=== PATIENT | female | born 1995 | race Hispanic/Latino ===

== ENCOUNTER 2018-10-18 09:41 | Emergency (ER) | payer OTHER, SELFPAY ==
[2018-10-18] MEDS ORDERED: Morphine 4 MG/ML VIAL ONE (10:35)
[2018-10-18 10:50] LABS: #Eosinphils 0.1 thou/uL (0.0-0.7); #Lymphocytes 1.8 thou/uL (1.20-3.40); #Monocytes 0.3 thou/uL (0.11-0.59); #Neutrophils 3.7 thou/uL (1.40-6.50); %Basophils 0.1 % (0.0-1.0); %Eosinophils 1.9 % (0.0-10.0); %Lymphocytes 29.6 % (21.0-51.0); %Monocytes 5.6 % (0.0-10.0); %Neutrophils 62.8 % (42.0-75.0); Mean Corpuscular HGB CONC 33.9 g/dL (32.0-36.0); Mean Corpuscular Hemoglobin 26.4 pg (27.0-31.0); Mean Corpuscular Volume 77.9 fL (78.0-98.0); Mean Platelet Volume 8.2 fL (7.4-10.4); Platelet Count 270 thou/uL (130-400); RBC Distribution Width 12.3 % (11.5-14.5); Red Blood Cell (RBC) Count 4.53 mill/uL (4.20-5.40); White Blood Cell (WBC) Count 5.9 thou/uL (4.8-10.8)
[2018-10-18 10:58] LABS: BHCG - Serum Negative (NEGATIVE); Pregs Control Background? CLEAR/WHITE (CLR/WHITE); Pregs Control Bar Appear? YES (CONTROL BAR)
[2018-10-18 11:11] LABS: ALT (SGPT) 10 U/L (8-55); AST (SGOT) 14 U/L (5-34); Albumin 4.2 g/dL (3.5-5.0); Alkaline Phosphatase 71 U/L (40-150); Anion Gap 11 mmol/L (10-20); BUN (Urea Nitrogen) 8 mg/dL (7.0-18.7); Bilirubin, Total 0.5 mg/dL (0.2-1.2); Calc. Creatinine Clearance 0 mL/min (70-130); Calcium 9.3 mg/dL (7.8-10.44); Carbon Dioxide 26 mmol/L (22-29); Chloride 104 mmol/L (98-107); Estimated GFR-MDRD 79; Globulin 3.2 g/dL (2.4-3.5); Glucose 86 mg/dL (70-105); Lipase 56 U/L (8-78); Potassium 3.6 mmol/L (3.5-5.1); Protein, Total 7.4 g/dL (6.0-8.3); Sodium 137 mmol/L (136-145)
[2018-10-18 11:42] LABS: Bilirubin Negative (Negative); Blood, Urine Negative (Negative); Clarity CLEAR (Clear); Glucose, Urine (Dipstick) Negative (Negative); Leukocyte Negative (Negative); Nitrite Negative (Negative); Protein, Urine (Dipstick) Negative (Neg-Trace); Specific Gravity, Urine 1.006 (1.002-1.036); Urobilinogen 0.2 mg/dL (0.2-1.0)
--- NOTE | 2018-10-18 12:03 | ULT ---
RIGHT UPPER QUADRANT ULTRASOUND: History: Right upper quadrant pain. FINDINGS: Images of the gallbladder shows no evidence of gallstones. The gallbladder wall thickness is normal. The common duct is normal caliber. Technologist does describe a positive Philippe's sign with scanning of the gallbladder. The liver and right kidney as imaged appear unremarkable. The pancreas is mostly obscured. IMPRESSION: Unremarkable gallbladder ultrasound. Technologist does describe a positive Philippe's sign with imaging . POS: OFF
== END 2018-10-18 12:48 | disposition home or self-care (01) ==
LOC: ERS 09:41
DX: M65.4 Radial styloid tenosynovitis [de Quervain] (principal); F41.9 Anxiety disorder, unspecified; F32.9 Major depressive disorder, single episode, unspecified; F43.10 Post-traumatic stress disorder, unspecified; K58.0 Irritable bowel syndrome with diarrhea
CPT/HCPCS: 76705; 80053; 81003; 83690; 84703; 85025; 96361; 96374; J2270

== ENCOUNTER 2018-10-30 17:48 | Emergency (ER) | payer OTHER ==
[2018-10-30 18:38] LABS: #Eosinphils 0.1 thou/uL (0.0-0.7); #Lymphocytes 2.4 thou/uL (1.20-3.40); #Monocytes 0.5 thou/uL (0.11-0.59); #Neutrophils 4.3 thou/uL (1.40-6.50); %Basophils 0.4 % (0.0-1.0); %Eosinophils 1.2 % (0.0-10.0); %Lymphocytes 33.2 % (21.0-51.0); %Monocytes 6.2 % (0.0-10.0); Hemoglobin 13.5 g/dL (12.0-16.0); Mean Corpuscular HGB CONC 34.6 g/dL (32.0-36.0); Mean Platelet Volume 8.6 fL (7.4-10.4); Platelet Count 268 thou/uL (130-400); RBC Distribution Width 12.7 % (11.5-14.5); Red Blood Cell (RBC) Count 4.99 mill/uL (4.20-5.40); White Blood Cell (WBC) Count 7.2 thou/uL (4.8-10.8)
[2018-10-30 19:01] LABS: ALT (SGPT) 10 U/L (8-55); AST (SGOT) 13 U/L (5-34); Albumin 4.9 g/dL (3.5-5.0); Alkaline Phosphatase 58 U/L (40-150); Anion Gap 15 mmol/L (10-20); BUN (Urea Nitrogen) 10 mg/dL (7.0-18.7); Bilirubin, Total 0.8 mg/dL (0.2-1.2); Calc. Creatinine Clearance 0 mL/min (70-130); Calcium 10.2 mg/dL (7.8-10.44); Carbon Dioxide 22 mmol/L (22-29); Chloride 105 mmol/L (98-107); Estimated GFR-MDRD 63; Globulin 3.7 g/dL (2.4-3.5); Glucose 81 mg/dL (70-105); Potassium 3.6 mmol/L (3.5-5.1); Protein, Total 8.6 g/dL (6.0-8.3); Sodium 138 mmol/L (136-145)
[2018-10-30] MEDS ORDERED: Dicyclomine 20 MG TAB ONE (19:14)
[2018-10-30] MEDS ORDERED: Ondansetron PF 4 MG/2 ML Vial ONE (19:21)
== END 2018-10-30 20:27 | disposition home or self-care (01) ==
LOC: ERS 17:48
DX: R10.11 Right upper quadrant pain (principal); R10.813 Right lower quadrant abdominal tenderness; F41.9 Anxiety disorder, unspecified; F32.9 Major depressive disorder, single episode, unspecified; K58.9 Irritable bowel syndrome, unspecified; Z87.891 Personal history of nicotine dependence; Z79.899 Other long term (current) drug therapy
CPT/HCPCS: 80053; 82274; 85025; 96374; J2405

== ENCOUNTER 2018-11-28 12:40 | Emergency (ER) | payer OTHER ==
[2018-11-28 14:03] LABS: #Eosinphils 0.1 thou/uL (0.0-0.7); #Lymphocytes 1.9 thou/uL (1.20-3.40); #Monocytes 0.3 thou/uL (0.11-0.59); #Neutrophils 3.5 thou/uL (1.40-6.50); %Basophils 0.4 % (0.0-1.0); %Eosinophils 2.4 % (0.0-10.0); %Lymphocytes 32.5 % (21.0-51.0); %Monocytes 4.9 % (0.0-10.0); %Neutrophils 59.8 % (42.0-75.0); Hemoglobin 12.5 g/dL (12.0-16.0); Mean Corpuscular HGB CONC 34.5 g/dL (32.0-36.0); Mean Corpuscular Hemoglobin 27.2 pg (27.0-31.0); Mean Corpuscular Volume 78.8 fL (78.0-98.0); Mean Platelet Volume 8.9 fL (7.4-10.4); Platelet Count 247 thou/uL (130-400); RBC Distribution Width 12.9 % (11.5-14.5); White Blood Cell (WBC) Count 5.8 thou/uL (4.8-10.8)
[2018-11-28 14:20] LABS: Bilirubin Negative (Negative); Blood, Urine Negative (Negative); Clarity CLOUDY (Clear); Glucose, Urine (Dipstick) Negative (Negative); Leukocyte Large (Negative); Nitrite Negative (Negative); Protein, Urine (Dipstick) Negative (Neg-Trace)
[2018-11-28 14:21] LABS: Bacteria/HPF 1+ HPF (None Seen); Hyaline Casts/LPF 4-6 HYALINE CAST LPF (0-3 Hyaline); Pathc Cast-AUWi Flag 0.95 (0-2.49); RBC/HPF 0-3 HPF (0-3)
[2018-11-28 14:27] LABS: ALT (SGPT) 11 U/L (8-55); AST (SGOT) 12 U/L (5-34); Albumin 4.5 g/dL (3.5-5.0); Alkaline Phosphatase 61 U/L (40-150); Anion Gap 14 mmol/L (10-20); BUN (Urea Nitrogen) 10 mg/dL (7.0-18.7); Bilirubin, Total 0.7 mg/dL (0.2-1.2); Calc. Creatinine Clearance 0 mL/min (70-130); Calcium 9.3 mg/dL (7.8-10.44); Carbon Dioxide 22 mmol/L (22-29); Chloride 104 mmol/L (98-107); Estimated GFR-MDRD 71; Globulin 3.5 g/dL (2.4-3.5); Glucose 76 mg/dL (70-105); Lipase 52 U/L (8-78); Potassium 3.6 mmol/L (3.5-5.1); Sodium 136 mmol/L (136-145)
[2018-11-28 16:19] LABS: Pregnancy Test - Urine (BHCG) Negative (Negative); Pregu Control Background? CLEAR/WHITE (CLR/WHITE); Pregu Control Bar Appear? YES (CONTROL BAR); Specific Gravity 1.018 (1.002-1.036)
== END 2018-11-28 16:39 | disposition home or self-care (01) ==
LOC: ERS 12:40
DX: K29.70 Gastritis, unspecified, without bleeding (principal); N39.0 Urinary tract infection, site not specified; F41.9 Anxiety disorder, unspecified; F32.9 Major depressive disorder, single episode, unspecified; F43.10 Post-traumatic stress disorder, unspecified; Z79.899 Other long term (current) drug therapy
CPT/HCPCS: 36415; 80053; 81003; 81015; 81025; 83690; 85025; 99284

== ENCOUNTER 2018-11-28 17:49 | Emergency (ER) | payer OTHER ==
[~2018-11-28 17:49] MED LIST: Iopamidol 370 76% 100 ML VIAL ONE
[2018-11-28] MEDS ORDERED: Sucralfate 1 GM TAB ONE (18:13)
[2018-11-28] MEDS ORDERED: Famotidine 20 MG TAB ONE (18:14)
--- NOTE | 2018-11-28 19:33 | CT ---
CT Abdomen Pelvis W Con: 11/28/2018 6:25 PM CLINICAL INFORMATION: Right upper quadrant abdominal pain COMPARISON: 05/23/2016 TECHNIQUE: Multiple contiguous axial images were obtained and a CT of the abdomen and pelvis with IV contrast. C oronal reformats were performed. FINDINGS: Lower Chest: within normal limits. Abdomen: Liver: within normal limits. Bile Ducts: Normal caliber. Gallbladder: No calcified gallstones. Normal caliber wall. Pancreas: within normal limits. Spleen: within normal limits. Adrenals: within normal limits. Kidneys: within normal limits. Pelvis: Reproductive Organs: No pelvic masses. Ureters: within normal limits. Bladder: within normal limits. Peritoneum: No free air, no fluid collection. A trace amount of free fluid in the pelvis is likely ph ysiologic. Bowel: Normal caliber. Nonvisualized appendix may be from prior appendectomy. Mesentery and Retroperitoneum: No enlarged mesenteric or retroperitoneal lymph nodes. Vessels: Normal. Abdominal Wall: within normal limits. Bones: Within normal limits IMPRESSION: No evidence of acute intraabdominal\pelvic abnormality.
== END 2018-11-28 19:48 | disposition home or self-care (01) ==
LOC: SCSER 17:49
DX: R10.11 Right upper quadrant pain (principal); F41.9 Anxiety disorder, unspecified; F32.9 Major depressive disorder, single episode, unspecified; K58.9 Irritable bowel syndrome, unspecified
CPT/HCPCS: 74177; 96372; J0500; Q9967

== ENCOUNTER 2018-12-07 12:26 | Outpatient (CLI) | payer OTHER ==
--- NOTE | 2018-12-07 15:48 | NM ---
EXAM: Nuclear medicine hepatobiliary scan HISTORY: Right upper quadrant abdominal pain TECHNIQUE: A nuclear medicine hepatobiliary scan was performed after administration of 5.5 mCi of maikel hnetium 99m mebrofenin. A gallbladder ejection fraction was performed after administration of boost by mouth. COMPARISON: None FINDINGS: Prompt uptake of the radiopharmaceutical by the liver is seen. No photopenic liver defects are seen. Biliary activity is seen within 5 minutes. Gallbladder activity is seen within 6 minutes. Bowel activity is seen within 8 minutes. A gallbladder ejection fraction was calculated at greater than 80%. IMPRESSION: Normal hepatobiliary scan
== END 2018-12-07 12:27 | disposition home or self-care (01) ==
LOC: NM 12:26
PROVIDERS: ATTEND Internal Medicine
DX: R10.11 Right upper quadrant pain (principal)
CPT/HCPCS: 78227; A9537

== ENCOUNTER 2018-12-07 19:45 | Observation (INO) | payer OTHER ==
[2018-12-07] MEDS ORDERED: Ondansetron PF 4 MG/2 ML Vial ONE (20:43)
[2018-12-07] MEDS ORDERED: Morphine 4 MG/ML VIAL ONE ×2 (20:43→23:43)
[2018-12-07] MEDS ORDERED: diphenhydrAMINE 50 MG/ML VIAL ONE (20:48)
--- NOTE | 2018-12-07 21:25 | ULT ---
RIGHT UPPER QUADRANT ULTRASOUND: HISTORY: Right upper quadrant abdominal pain. FINDINGS: The liver, gallbladder, right kidney, and visualized portions of the pancreas appear normal. The com mon duct measures 4 mm in diameter. No free fluid is seen in the Hoff pouch. IMPRESSION: Normal examination. POS: [facility]
[2018-12-07 21:29] LABS: #Eosinphils 0.1 thou/uL (0.0-0.7); #Lymphocytes 1.9 thou/uL (1.20-3.40); #Monocytes 0.4 thou/uL (0.11-0.59); %Basophils 0.6 % (0.0-1.0); %Monocytes 6.1 % (0.0-10.0); %Neutrophils 62.4 % (42.0-75.0); Hemoglobin 11.3 g/dL (12.0-16.0); Mean Corpuscular HGB CONC 32.9 g/dL (32.0-36.0); Mean Corpuscular Hemoglobin 26.2 pg (27.0-31.0); Mean Corpuscular Volume 79.7 fL (78.0-98.0); Mean Platelet Volume 8.3 fL (7.4-10.4); Platelet Count 231 thou/uL (130-400); RBC Distribution Width 13.3 % (11.5-14.5); Red Blood Cell (RBC) Count 4.32 mill/uL (4.20-5.40); White Blood Cell (WBC) Count 6.5 thou/uL (4.8-10.8)
[2018-12-07 21:55] LABS: ALT (SGPT) 8 U/L (8-55); AST (SGOT) 9 U/L (5-34); Albumin 3.9 g/dL (3.5-5.0); Alkaline Phosphatase 53 U/L (40-150); Anion Gap 12 mmol/L (10-20); BUN (Urea Nitrogen) 8 mg/dL (7.0-18.7); Bilirubin, Total 0.5 mg/dL (0.2-1.2); Calc. Creatinine Clearance 0 mL/min (70-130); Calcium 8.6 mg/dL (7.8-10.44); Carbon Dioxide 23 mmol/L (22-29); Chloride 107 mmol/L (98-107); Estimated GFR-MDRD 84; Globulin 2.8 g/dL (2.4-3.5); Glucose 83 mg/dL (70-105); Lipase 60 U/L (8-78); Potassium 3.4 mmol/L (3.5-5.1); Protein, Total 6.7 g/dL (6.0-8.3); Sodium 139 mmol/L (136-145)
[2018-12-07] MEDS ORDERED: Ketorolac Tromethamine 30 MG/ML VIAL ONE (22:22)
[2018-12-07 23:56] LABS: Acetaminophen Less than 6.0 mcg/mL (10.0-30.0); Alcohol Less than 10 mg/dL (Less than 10); Salicylate Less than 8.0 mg/dL (15.0-30.0)
[2018-12-08 00:31] VITALS: BMI 37.2
[2018-12-08] MEDS ORDERED: Ondansetron PF 4 MG/2 ML Vial IVP PRN (00:40)
[2018-12-08] MEDS ORDERED: Ondansetron ODT 4 MG TAB SL PRN (00:40)
[2018-12-08] MEDS: Morphine 2 MG/ML SYRINGE SLOW IVP PRN ×2 (03:18→07:14)
[2018-12-08] MEDS ORDERED: traMADol HCl 50 MG TAB PO PRN (09:53)
[2018-12-08] MEDS ORDERED: Pantoprazole 40 MG VIAL IVP SCH ×2 (10:15→11:00)
[2018-12-08 10:38] LABS: CK (CPK) 42 U/L (29-168); CRP (Inflammatory) Less than 0.50 mg/dL (= or < 0.5)
[2018-12-08] MEDS ORDERED: Sodium Chloride 0.9% (PF) 10 ML VIAL FS PRN (10:49)
--- NOTE | 2018-12-08 10:56 | RAD ---
Exam: Chest 2 views HISTORY:Short of breath Comparison: None FINDINGS: Lungs: No masses or consolidation. Cardiac silhouette: Normal size Pulmonary vessels: Normal Pleural Spaces: Clear Pneumothorax: None Osseous abnormalities: None of acuity. IMPRESSION: No focal consolidation.
[2018-12-08] MEDS ORDERED: Cyclobenzaprine 10 MG TAB PO SCH (11:00)
[2018-12-08] MEDS: Sodium Chloride 0.9% 1,000 ML IV SCH (11:27)
--- NOTE | 2018-12-08 11:30 | HP ---
This is ABA Jarquin dictating a report for Dr. Herman. PRIMARY CARE PHYSICIAN: Dr. Ascencio. CHIEF COMPLAINT: Right upper quadrant pain. HISTORY OF PRESENT ILLNESS: Ms. Martinez is a very pleasant 23-year-old woman, who presents with persistent right upper quadrant pain, described as a burning sensation, that is a 10/10 in severity, and debilitating when it comes on. She has had episodes where she has been at work and the pain comes on only slightly alleviated by laying in the position wherever she is standing. The patient has had multiple investigations done in the past. I received a call from her primary care physician, Dr. Ascencio, this morning, who stated she underwent an upper endoscopy and a colonoscopy with Dr. Murray last month, which showed duodenal ulcerations and the patient was placed on Protonix with some improvement. The exam was otherwise unremarkable. The patient apparently had difficulties in the past with abdominal pain, associated with bloody stools, and had been diagnosed with colitis as a child. The abdominal pain has recurred approximately 1 year ago and she has had multiple investigations since then. These include a CT of the abdomen and pelvis on 11/28/2018, which demonstrated no evidence of acute intra-abdominal/pelvic abnormality. On 12/07/2018, she underwent a HIDA scan, which showed normal gallbladder activity with the gallbladder ejection fraction greater than 80%. Exam was unremarkable. She had an abdominal ultrasound on 12/07/2018, which also showed a normal examination with the common duct measuring 4 mm. The patient has a consultation with Dr. Taveras for . The patient states she has had blood-tinged vomit and at times blood-tinged diarrhea, which has been intermittent for the last year. The last time she noted blood in her stools was on Wednesday, early this week, which she describes as blood clots similar to what you would pass during menstrual period. She denies any further bleeding since then and denies experiencing any constipation or straining with bowel movements nor rectal pain. She has not been taking any anti-inflammatories since seen in the ER on 11/28, when she was advised to stop taking Motrin. During the day, she takes her Protonix only, and in the evening when she is not at work, she is able to take her Tylenol with codeine, which typically helps to control her discomfort; however, in the last week, her pain has become uncontrollable. At present, she complains of a burning sensation in the right upper quadrant, that is nonradiating. Denies any chest pain, but does have difficulty taking a deep breath due to the pressure causes in the right upper quadrant. She denies any recent cough or hemoptysis. No chills or sweats. She denies any urinary symptoms. Denies any trauma, any strenuous activity, or heavy lifting. ALLERGIES: PENICILLIN. CURRENT MEDICATIONS: 1. Duloxetine. 2. Pantoprazole. PAST MEDICAL HISTORY: 1. "Colitis" as a child. 2. Duodenal ulcers. 3. IBS. 4. Anxiety. 5. Depression. PAST SURGICAL HISTORY: Appendectomy. SOCIAL HISTORY: The patient works as a office manager receptionist. Denies any alcohol use. Denies any tobacco use or current drug use. Apparently abused cocaine and marijuana in the past. PHYSICAL EXAMINATION: GENERAL: The patient appears well developed, well nourished, and found resting in bed comfortably. VITAL SIGNS: Temperature 98.5, pulse 70, respirations 14, O2 saturation 99% on room air, and blood pressure 101/65. HEENT: Normocephalic and atraumatic. Pupils are equal, round, and reactive to light. Sclerae without icterus. Oropharynx is clear. NECK: Supple without lymphadenopathy. LUNGS: Clear to auscultation bilaterally without any wheezes, rales, or rhonchi. CARDIAC: Regular rate and rhythm. No chest wall tenderness. ABDOMEN: Soft and nondistended. Right upper quadrant tenderness to light palpation, guarding. No rigidity. MUSCULOSKELETAL: The patient with tenderness to the lower thoracic spine with tenderness to palpation of the right paraspinal muscles. NEUROLOGIC: Alert and oriented x3. No neuro deficits. Power 5/5 in all extremities. SKIN: Normal, warm and dry. No rash or jaundice. LABORATORY DATA: White blood count 6.5, hemoglobin 11.3, hematocrit 34.5, and platelets 231. Sodium 139, potassium 3.4, BUN 8, creatinine 0.83, GFR 84, and glucose 83. LFTs unremarkable. Lipase 60, alkaline phosphatase 53, and albumin 3.9. Toxicology done in the ER was negative for salicylates, acetaminophen, and plasma alcohol. IMAGING DATA: None done in the ER. Recent investigations as mentioned above in HPI. IMPRESSION AND PLAN: Ms. Martinez is a 23-year-old woman, who is being referred for management of the following. 1. Right upper quadrant pain. The patient has undergone multiple investigations as noted above, that have been unremarkable to explain the severe pain she has continued to experience. She has seen Dr. Murray, with normal endoscopies apart from changes in the duodenum with indigestion that improved once put on Protonix. Scheduled to see Dr. Taveras on 12/23/2018. We will repeat laboratory studies today and assess for any changes. The patient did experience pain to the right lower back along the level of the area she is having discomfort in the right upper quadrant. Therefore, we will order an MRI of the thoracolumbar spine to rule out the possibility of radiculopathy. She does describe a burning sensation, that is better when in position. We will also obtain urinalysis, urine culture, and renal ultrasound. We will try tramadol and Flexeril for her pain. Dr. Murray made aware the patient is here. Pending results of imaging, we will consider General Surgery consultation. Dr. Taveras is on-call later tonight. We will also obtain a chest x-ray to ensure there is no lung pathology causing referred pain to the right upper quadrant. 2. Gastrointestinal prophylaxis. We will resume Protonix IV. 3. Deep venous thrombosis prophylaxis with mechanical sequential compression devices only. No pharmaco prophylaxis given recent lower gastrointestinal bleeding and history of possible duodenal ulcers. 4. Code status, full. Her surrogate decision maker is her father, Eric Martinez. The patient's case will be discussed with Dr. Herman for further recommendations. Job ID: [id number]
[2018-12-08] MEDS ORDERED: Morphine 2 MG/ML SYRINGE SLOW IVP PRN (13:21)
--- NOTE | 2018-12-08 14:23 | ULT ---
RENAL ULTRASOUND: HISTORY: Right flank pain. FINDINGS: The right kidney measures 8.5 cm in length. The left kidney measures 9.8 cm in length. No evidence of hydronephrosis. No mass or cystic lesion seen. The urinary bladder is distended and unremarkable . IMPRESSION: Unremarkable renal ultrasound. POS: [facility]
[2018-12-08 16:58] LABS: Amphetamine Not Detected (NotDetected); Barbiturates Screen Not Detected (NotDetected); Benzodiazepine Screen Not Detected (NotDetected); Cocaine Metabolite Screen Not Detected (NotDetected); Medtox Control Line Valid? VALID (VALID); Medtox Reader # READER 4; Methadone Not Detected (NotDetected); Methamphetamine Not Detected (NotDetected); Opiate Screen Detected (NotDetected); Oxycodone Screen Not Detected (NotDetected); Phencyclidine (PCP) Not Detected (NotDetected); THC/Cannabinoid Screen Not Detected (NotDetected); Tricyclic Screen Not Detected (NotDetected)
--- NOTE | 2018-12-08 17:04 | MRI ---
MRI THORACIC SPINE WITHOUT CONTRAST: INDICATIONS: Right back pain. Radiculopathy. FINDINGS: Thoracic vertebrae maintain normal height and alignment. Disk spaces are maintained. A small disk protrusion is seen at T6-T7, which a abuts the anterior cord. No other significant disk bulge or protrusion. Thoracic cord signal is normal. No other abnormality identified. IMPRESSION: Small disk protrusion at T6-T7, abutting the anterior cord. POS: [facility]
[2018-12-08 17:17] LABS: Bilirubin Small (Negative); Blood, Urine Trace (Negative); Glucose, Urine (Dipstick) Negative (Negative); Leukocyte Trace (Negative); Nitrite Negative (Negative); Protein, Urine (Dipstick) Trace mg/dL (Neg-Trace); Urobilinogen 0.2 mg/dL (Less than 2)
--- NOTE | 2018-12-08 17:19 | MRI ---
MRI LUMBAR SPINE WITHOUT CONTRAST: INDICATIONS: Low back pain and lumbar radiculopathy. FINDINGS: The lumbar vertebrae maintain normal height and alignment. Disk spaces are preserved. No significant abnormality at L1-L2 or at L2-L3. At L3-L4, there is an annular fissure with small central disk protrusion indenting the anterior theca l sac. This results in very mild central canal stenosis. At L4-L5, there is an annular fissure with small central disk protrusion indenting the anterior theca l sac, resulting in mild central canal stenosis. At L5-S1, no significant abnormality. IMPRESSION: Annular fissures and small central disk protrusions are seen at L3-L4 and at L4-L5, as described. POS: [facility]
[2018-12-08 17:24] LABS: Clarity Cloudy (Clear)
[2018-12-08 17:25] LABS: Pregnancy Test - Urine (BHCG) POSITIVE (Negative); Pregu Control Background? CLEAR/WHITE (CLR/WHITE); Pregu Control Bar Appear? YES (CONTROL BAR); Specific Gravity 1.026 (1.002-1.036)
[2018-12-08 17:30] LABS: Bacteria/HPF 2+ HPF (None Seen); RBC/HPF 0-3 HPF (0-3)
[2018-12-08] MEDS ORDERED: Ondansetron PF 4 MG/2 ML Vial SLOW IVP PRN (17:36)
[2018-12-08] MEDS ORDERED: Acetaminophen 1,000 MG in Premix Bag 1 BAG IVPB SCH (17:45)
[2018-12-08 18:14] LABS: BHCG - Serum POSITIVE (NEGATIVE); Pregs Control Background? CLEAR/WHITE (CLR/WHITE); Pregs Control Bar Appear? YES (CONTROL BAR)
[2018-12-08] MEDS ORDERED: Morphine 4 MG/ML VIAL SLOW IVP PRN (18:22)
[2018-12-08] MEDS ORDERED: Acetaminophen/Codeine 30-300mg Tablet PO PRN (18:24)
--- NOTE | 2018-12-09 02:03 | CON ---
DATE OF CONSULTATION: HISTORY OF PRESENT ILLNESS: Ms. Martinez is a 23-year-old female who reported to the emergency department last night for right upper quadrant pain, burning, vomiting , onset this yesterday afternoon. She states that she has had this pain intermittent over the last year and that she was scheduled to have a cholecystectomy on 12/23/2018. The patient denied fever or urinary tract symptoms. She actually recently had a UTI and finished her antibiotics and is no longer having symptoms. She does have a history of gastric ulcers and followed by Dr. Murray, but she is significantly point tender over her anterior right quadrant. She was admitted to the hospitalist to work up this pain. Exams such as HIDA scan have been normal. Abdominal ultrasound has been normal. She has had blood-tinged stool of late, but denies constipation. A thoracic and lumbar spine has been ordered with possible radiculopathy rule out. Thoracic MRI shows a T6-T7 disk protrusion that abuts the cord, however, there is no cord compression. Neurosurgery was consulted to evaluate if this could be the cause of her upper right quadrant pain. When I entered the patient's hospital room, she is resting. She states that she has right upper quadrant pain and is tender to palpate. She has some paraspinal muscular tenderness bilaterally along most of her upper and mid back. She is moving all 4 extremities well. There is no radiating pain. There is no numbness or tingling. All 4 extremities are working well. She is neurologically intact and no lateralizing deficits. REVIEW OF SYSTEMS: A 10-point review of systems has been completed and is negative other than stated in the above HPI. PAST MEDICAL HISTORY: Ulcerative colitis, duodenal ulcer, IBS, anxiety, depression. CURRENT MEDICATIONS: 1. Duloxetine. 2. Pantoprazole. ALLERGIES: PENICILLIN. PAST SURGICAL HISTORY: Appendectomy in 2016. SOCIAL HISTORY: The patient works as a concierge receptionist. Denies any alcohol use. Denies any tobacco use or current drug use. Apparently abused cocaine and marijuana in the past. PHYSICAL EXAMINATION: CONSTITUTIONAL: The patient is alert and oriented. She is overweight, normotensive, afebrile, in no visible distress. Nontoxic. HEENT: Head is normocephalic and atraumatic. Pupils are equal, round, and reactive to light. Extraocular movements are intact. Hearing is intact. Moist mucous membranes. RESPIRATORY: Normal work of breathing on room air. BACK: The patient is tender to palpate along the paraspinal muscles bilaterally in the thoracic and upper spines. EXTREMITIES: The patient is moving all 4 extremities well. She has 5/5 bilateral strength in deltoids, biceps, triceps, spray gun striper strength, hip flexion, knee flexion, knee extension, dorsiflexion, plantar flexion, EHL, no change in sensation bilaterally. ABDOMEN: The patient is extremely point tender, right upper quadrant just distal to the ribs. She is also tender, but not as severely over the ribs themselves and into the intercostal spaces. If we go lateral to the sternum, she states that creates some pressure equal to if we go lateral to her flank pressure, rib cage there causes increased pressure, but not significant pain. NEUROLOGIC: The patient is awake, alert, and oriented x3. Normal attention, concentration. Speech spontaneous and fluent. Normal fund of knowledge. Cranial nerves are grossly intact. There are no lateralizing motor or sensory deficits noted. IMAGING: MRI of the thoracic spine shows a small disk protrusion at T6-T7 that is abutting the anterior cord. There is no cord compression. MRI of the lumbar spine shows inner fissures and small central disk protrusion seen at L3-L4, L4- L5. There is no significant central or foraminal stenosis noted. LABORATORY DATA: The patient has a positive serum test as well as urine test, . ASSESSMENT AND PLAN: Ms. Martinez is a 23-year-old female who is recently found to be . She has been having 1-year history of right upper quadrant pain, worse recently, vomiting, due to pain, brought her to the emergency room last night. HIDA scan, ultrasounds, and lab work have been negative for abdominal US. Thoracic MRI shows a small T6-T7 disk protrusion without any compression of the spinal cord, does not appear to have any foraminal narrowing either. It is very unlikely that this disk protrusion could be the cause of her pain since there is no compression on the nerves. The patient is also point tender in the abdomen, which is not indicative of radiculopathy. Surgery for this would be very unlikely, especially given she is . There are no signs of myelopathy and she is moving all 4 extremities well and she does not have any bowel or bladder dysfunction at this time. If there are any further questions, please contact the neurosurgery team. Job ID: [id number] [facility]
[2018-12-09 04:42] LABS: #Eosinphils 0.1 thou/uL (0.0-0.7); #Lymphocytes 1.5 thou/uL (1.20-3.40); #Monocytes 0.3 thou/uL (0.11-0.59); #Neutrophils 2.6 thou/uL (1.40-6.50); %Basophils 0.3 % (0.0-1.0); %Lymphocytes 32.3 % (21.0-51.0); %Monocytes 7.3 % (0.0-10.0); %Neutrophils 57.1 % (42.0-75.0); Hemoglobin 11.3 g/dL (12.0-16.0); Mean Corpuscular HGB CONC 32.9 g/dL (32.0-36.0); Mean Corpuscular Hemoglobin 26.6 pg (27.0-31.0); Mean Corpuscular Volume 80.7 fL (78.0-98.0); Mean Platelet Volume 8.4 fL (7.4-10.4); Platelet Count 223 thou/uL (130-400); RBC Distribution Width 13.5 % (11.5-14.5); Red Blood Cell (RBC) Count 4.26 mill/uL (4.20-5.40); White Blood Cell (WBC) Count 4.6 thou/uL (4.8-10.8)
[2018-12-09 05:04] LABS: Anion Gap 12 mmol/L (10-20); BUN (Urea Nitrogen) 7 mg/dL (7.0-18.7); Calc. Creatinine Clearance 162 mL/min (70-130); Calcium 8.8 mg/dL (7.8-10.44); Carbon Dioxide 23 mmol/L (22-29); Chloride 106 mmol/L (98-107); Estimated GFR-MDRD 81; Glucose 75 mg/dL (70-105); Potassium 3.5 mmol/L (3.5-5.1); Sodium 137 mmol/L (136-145)
[2018-12-09] MEDS: Sodium Chloride 0.9% 1,000 ML IV SCH (05:19)
--- NOTE | 2018-12-09 07:19 | PRG ---
DATE OF SERVICE: 12/09/2018 I personally interviewed and examined the patient, agreed with documentation of Deena Glynn PA-C, dated 12/08/2018. Briefly, Safia Martinez is a 23-year-old young woman who has been evaluated for right upper quadrant pain extensively over the last week. All imaging studies were normal and gallbladder function seemed normal and eventually an MRI scan of the thoracic and lumbar spine was done. Lumbar spine is normal. Thoracic spine shows a small, very small midthoracic disk protrusion at T6-7. This 2 mm protrusion does not narrow the canal to a significant degree. It touches the anterior portion of the dura and it is at the concavity of the kyphosis in the thoracic spine, so the cord comes close to it, but it is not compressive. The nerve root sleeve in that segment do not have impingement upon them. Given the tiny size and the lack of neural compression, I do not believe this disk is either symptomatic nor worthy of surgical intervention. I think the right upper quadrant pain is coming from something else. Please call us back with questions. Job ID: [id number]
[2018-12-09 07:59] VITALS: BP 109/69; TEMP 97.5
[2018-12-09] MEDS ORDERED: DULoxetine 60 MG CAP PO SCH (09:00)
[2018-12-09] MEDS ORDERED: Pantoprazole 40 MG VIAL IVP SCH ×2 (09:00)
--- NOTE | 2018-12-09 14:50 | PDOC.EVN ---
Event Note - Event Note Event Note: Attempt made to fullfill consult request. When I went by pt room pr had been discharged.
--- NOTE | 2018-12-09 17:46 | DIS ---
DATE OF ADMISSION: 12/08/2018 DATE OF DISCHARGE: 12/09/2018 CONSULTING PHYSICIANS: 1. Deena Glynn PA-C, Neurosurgery. 2. Case discussed with Dr. Quintana, WILDLIFE REFUGE SPECIALIST. 3. Case discussed with Dr. Murray, Gastroenterology. DISCHARGE DIAGNOSES: 1. Right upper quadrant pain, unknown etiology, improved. 2. Incidental positive urine and serum test, quantitative level of 744.91. 3. Small disk protrusion at T6-T7, abutting anterior cord. 4. Annular fissures and small central disk protrusions at L3-L4 and at L4-L5 with very mild central canal stenosis. HOSPITAL COURSE: Ms. Martinez is a very pleasant 23-year-old woman, who presents with complaints of right upper quadrant burning pain. The patient has undergone extensive investigations including upper and lower endoscopies [address] Murray. I did speak with Dr. Murray, who confirmed the patient does not have any ulcers, gastric nor duodenal, he states there was an unusual finding in the duodenum, but biopsies were unremarkable, therefore, no concern. She has an appointment with Dr. Taveras later this month for elective cholecystectomy despite normal abdominal investigations including an ultrasound and CT imaging. She has no gallstones noted and bile ducts have been seen to be within normal limits with normal caliber. The patient was going to be assessed for surgery as an attempt to see if this would help to alleviate her right upper quadrant discomfort. She more recently underwent a HIDA scan on 12/07/2018, which showed a normal gallbladder ejection fraction of greater than 80%. Overall, this was normal about a hepatobiliary scan. At that time, the patient underwent a test that was negative. She returned to the ER the following day on 12/08/2018 due to persisting pain. MRI imaging done showed disk protrusion at T6-T7, which is abutting the anterior cord. We felt the pain given its burning nature could potentially be radicular pain. Therefore, Neurosurgery was consulted. Upon review, it was felt that there was no true compressive component and no impingement on the nerve root to explain her pain. She was incidentally found to be following a repeat urine test. This was confirmed with the serum hCG and a quantitative study was done as well showing a level of 744. It was therefore felt that surgical review would be of no consequence given the fact that she is and therefore, surgery would be contraindicated. The patient was very happy with a news of being and on day of discharge, stated she was feeling significantly better. We did confirm with Dr. Quintana that her Protonix would have to be discontinued and she would go home on Pepcid instead. He also confirmed morphine was okay for her to receive which she had been receiving throughout her hospitalization. He also confirmed Tylenol No. 3 could be continued as an outpatient to help control any recurring or persisting pain. The patient states her pain when she is more active and was happy to go home given the fact that no further investigations could be done apart, which she has already completed and that procedures would not be indicated given her . I did speak with Dr. Murray, who also felt further GI input would not be necessary given normal endoscopies. Again, the patient is feeling significantly better on day of discharge, and therefore, cleared to go home. The patient was seen and examined on day of discharge. CONDITION: Stable. ACTIVITY: As tolerated. DIET: Regular diet. DISCHARGE MEDICATIONS: 1. The patient was given a prescription for Pepcid 20 mg p.o. twice daily to take instead of Protonix. 2. The patient recently placed on Cymbalta and we will discuss with Dr. Ascencio going back to the Zoloft she was on more recently as it is safer during . 3. The patient will continue with Tylenol No. 3 for pain control, which she does have at home. She plans to follow up with Dr. Ascencio for further management. FOLLOWUP: 1. The patient will follow up with Dr. Ascencio within 1 week. 2. She will also establish care with an WILDLIFE REFUGE SPECIALIST. DISPOSITION: The patient was medically cleared for discharge home on 12/09/2018. Job ID: [id number]
== END 2018-12-09 12:31 | disposition home or self-care (01) ==
LOC: ERS 19:45 → SJJU 12-08 00:26
PROVIDERS: ADMIT Family Medicine; ATTEND Family Medicine
DX: O99.89 Other specified diseases and conditions complicating pregnancy, childbirth and the puerperium (principal); R10.11 Right upper quadrant pain; M51.26 Other intervertebral disc displacement, lumbar region; M51.24 Other intervertebral disc displacement, thoracic region; M48.061 Spinal stenosis, lumbar region without neurogenic claudication; Q05.7 Lumbar spina bifida without hydrocephalus; O99.619 Diseases of the digestive system complicating pregnancy, unspecified trimester; K58.9 Irritable bowel syndrome, unspecified; O99.340 Other mental disorders complicating pregnancy, unspecified trimester; F41.9 Anxiety disorder, unspecified; F32.9 Major depressive disorder, single episode, unspecified; Z88.0 Allergy status to penicillin
CPT/HCPCS: 36415; 71046; 72146; 72148; 76705; 76770; 80048; 80053; 80306; 80307; 81003; 81015; 81025; 82550; 83690; 84702; 84703; 85025; 86140; 96361; 96374; 96375; 96376; C9113; G0378; J0131; J1200; J1885; J2270; J2405

== ENCOUNTER 2019-01-01 19:10 | Emergency (ER) | payer MEDICAID, OTHER ==
[2019-01-01 19:31] LABS: Squamous Epithelial 0-3 HPF (0-3); WBC/HPF 0-3 HPF (0-3)
[2019-01-01 19:34] LABS: Bilirubin Negative (Negative); Blood, Urine Negative (Negative); Clarity Clear (Clear); Glucose, Urine (Dipstick) Normal (Negative); Leukocyte 25 Leu/uL (Negative); Nitrite Negative (Negative); Protein, Urine (Dipstick) Negative (Neg-Trace); Urobilinogen Normal mg/dL (Less than 2)
[2019-01-01 19:35] LABS: Bacteria/HPF None Seen HPF (None Seen)
[2019-01-01 19:37] LABS: #Eosinphils 0.1 thou/uL (0.0-0.7); #Lymphocytes 1.8 thou/uL (1.20-3.40); #Monocytes 0.4 thou/uL (0.11-0.59); #Neutrophils 4.7 thou/uL (1.40-6.50); %Basophils 0.4 % (0.0-1.0); %Eosinophils 0.9 % (0.0-10.0); %Monocytes 5.1 % (0.0-10.0); %Neutrophils 67.6 % (42.0-75.0); Hemoglobin 12.4 g/dL (12.0-16.0); Mean Corpuscular HGB CONC 34.6 g/dL (32.0-36.0); Mean Corpuscular Hemoglobin 27.7 pg (27.0-31.0); Mean Corpuscular Volume 80.1 fL (78.0-98.0); Mean Platelet Volume 8.7 fL (7.4-10.4); Platelet Count 226 thou/uL (130-400); RBC Distribution Width 13.6 % (11.5-14.5); Red Blood Cell (RBC) Count 4.46 mill/uL (4.20-5.40); White Blood Cell (WBC) Count 6.9 thou/uL (4.8-10.8)
--- NOTE | 2019-01-01 21:34 | ULT ---
PELVIC ULTRASOUND: History: Spotting. Comparison: None. FINDINGS: Retrograded uterus. Uterus measures 10.5 x 7.7 x 8.3 cm. Within the endometrium is a gestational sac, yolk sac, and pole. Motley rump length is 1.87 cm c orresponding to a gestational age of 8 weeks 3 days. heart rate is 168 bpm. Small amount of free fluid in the cul-de-sac. Left ovary has a normal echotexture, measuring 2.5 x 2. 0 x 1.4 cm. Anechoic focus in the right adnexa compatible with an ovarian cyst measuring 1.9 x 1.3 x 1.6 cm. The possibility of a corpus luteal cyst is raised. Overall the right ovary measures 2.3 x 3.5 x 3.1 cm. OVARIAN DOPPLER: Vascular flow to the left and right ovary normal. IMPRESSION: 1. Retrograde uterus. 2. Single intrauterine gestation with heart tones. Gestation age by crown rump length is 8 week s 3 days. POS: [facility]
== END 2019-01-01 22:21 | disposition home or self-care (01) ==
LOC: ERS 19:10
DX: O20.9 Hemorrhage in early pregnancy, unspecified (principal); O98.811 Other maternal infectious and parasitic diseases complicating pregnancy, first trimester; B37.3 Candidiasis of vulva and vagina; O99.341 Other mental disorders complicating pregnancy, first trimester; F41.9 Anxiety disorder, unspecified; F32.9 Major depressive disorder, single episode, unspecified; F43.10 Post-traumatic stress disorder, unspecified; O99.351 Diseases of the nervous system complicating pregnancy, first trimester; G47.00 Insomnia, unspecified; Z3A.08 8 weeks gestation of pregnancy
CPT/HCPCS: 36415; 76856; 81003; 81015; 84702; 85025; 86900; 86901; 87480; 87491; 87510; 87591; 87660

== ENCOUNTER 2019-01-25 07:32 | Emergency (ER) | payer MEDICAID, OTHER | END 2019-01-25 08:43 | disposition home or self-care (01) | LOC: ERS 07:32 | DX: O99.511 Diseases of the respiratory system complicating pregnancy, first trimester (principal); J06.9 Acute upper respiratory infection, unspecified; O99.341 Other mental disorders complicating pregnancy, first trimester; F41.9 Anxiety disorder, unspecified; F32.9 Major depressive disorder, single episode, unspecified; G47.00 Insomnia, unspecified; F43.10 Post-traumatic stress disorder, unspecified; Z3A.12 12 weeks gestation of pregnancy | CPT/HCPCS: 99283 ==

== ENCOUNTER 2019-03-04 09:57 | Emergency (ER) | payer OTHER ==
[2019-03-04] MEDS ORDERED: Ondansetron ODT 4 MG TAB ONE (11:00)
[2019-03-04 11:17] LABS: Bacteria/HPF 4+ HPF (None Seen); Bilirubin Negative (Negative); Blood, Urine 2+ (Negative); Clarity Turbid (Clear); Glucose, Urine (Dipstick) Normal (Negative); Leukocyte 500 Leu/uL (Negative); Nitrite 2+ (Negative); Protein, Urine (Dipstick) 100 mg/dL (Neg-Trace); RBC/HPF Greater than 50 HPF (0-3); Urobilinogen Normal mg/dL (Less than 2); WBC/HPF Greater than 50 HPF (0-3)
[2019-03-04 12:23] LABS: #Lymphocytes 1.2 thou/uL (1.20-3.40); #Monocytes 0.4 thou/uL (0.11-0.59); #Neutrophils 8.2 thou/uL (1.40-6.50); %Basophils 0.2 % (0.0-1.0); %Eosinophils 0.5 % (0.0-10.0); %Monocytes 4.1 % (0.0-10.0); %Neutrophils 83.2 % (42.0-75.0); Hemoglobin 11.8 g/dL (12.0-16.0); Mean Corpuscular HGB CONC 35.5 g/dL (32.0-36.0); Mean Corpuscular Hemoglobin 29.8 pg (27.0-31.0); Mean Corpuscular Volume 83.8 fL (78.0-98.0); Platelet Count 216 thou/uL (130-400); RBC Distribution Width 13.4 % (11.5-14.5); Red Blood Cell (RBC) Count 3.98 mill/uL (4.20-5.40); White Blood Cell (WBC) Count 9.9 thou/uL (4.8-10.8)
[2019-03-04] MEDS ORDERED: Morphine 4 MG/ML VIAL ONE (12:32)
[2019-03-04 12:44] LABS: ALT (SGPT) 16 U/L (8-55); AST (SGOT) 13 U/L (5-34); Albumin 3.7 g/dL (3.5-5.0); Alkaline Phosphatase 52 U/L (40-110); Anion Gap 13 mmol/L (10-20); BUN (Urea Nitrogen) 7 mg/dL (7.0-18.7); Bilirubin, Total 0.3 mg/dL (0.2-1.2); Calc. Creatinine Clearance 0 mL/min (70-130); Calcium 8.8 mg/dL (7.8-10.44); Carbon Dioxide 20 mmol/L (22-29); Chloride 106 mmol/L (98-107); Estimated GFR-MDRD Greater than 90; Globulin 3.3 g/dL (2.4-3.5); Glucose 75 mg/dL (70-105); Potassium 3.5 mmol/L (3.5-5.1); Sodium 135 mmol/L (136-145)
[2019-03-04] MEDS ORDERED: cefTRIAXone\\ROCEPHIN 1 GM VIAL ONE (12:46)
--- NOTE | 2019-03-04 14:33 | ULT ---
Bilateral renal ultrasound CLINICAL INDICATION: Renal Insufficiency COMPARISON: None FINDINGS: Right kidney: No solid mass, or hydronephrosis. Left kidney: No solid mass, or hydronephrosis. Urinary bladder: Normal Incidental note of lidocaine gestation with cardiac activity documented at 136 bpm. IMPRESSION: Unremarkable exam.
--- NOTE | 2019-03-04 16:46 | PDOC.FPROB ---
FMR OB H&P: Medications - Current Home Medications: Medication Instructions Recorded Confirmed Type Famotidine [Pepcid] 20 mg PO BID #60 tab 12/09/18 Rx Allergies/Adverse Reactions: Allergies Allergy/AdvReac Type Severity Reaction Status Date / Time Penicillins Allergy Verified 12/08/18 00:36 FMR OB H&P: Results - Labs Lab results: Laboratory Results - last 24 hr 03/04/19 03/04/19 03/04/19 10:55 12:14 12:14 WBC 9.9 RBC 3.98 L Hgb 11.8 L Hct 33.3 L MCV 83.8 MCH 29.8 MCHC 35.5 RDW 13.4 Plt Count 216 MPV 8.0 Neutrophils % 83.2 H Lymphocytes % 12.0 L Monocytes % 4.1 Eosinophils % 0.5 Basophils % 0.2 Neutrophils # 8.2 H Lymphocytes # 1.2 Monocytes # 0.4 Eosinophils # 0.0 Basophils # 0.0 Sodium 135 L Potassium 3.5 Chloride 106 Carbon Dioxide 20 L Anion Gap 13 BUN 7 Creatinine 0.75 Estimated GFR (MDRD) Greater than 90 Glucose 75 Calcium 8.8 Total Bilirubin 0.3 AST 13 ALT 16 Alkaline Phosphatase 52 Serum Total Protein 7.0 Albumin 3.7 Globulin 3.3 Albumin/Globulin Ratio 1.1 L Urine Color Yellow Urine Clarity Turbid A Urine pH 7.0 Ur Specific [place] 1.016 Urine Protein 100 A Urine Glucose (UA) Normal Urine Ketones Negative Urine Blood 2+ A Urine Nitrite 2+ A Urine Bilirubin Negative Urine Urobilinogen Normal Ur Leukocyte Esterase 500 A Urine RBC Greater than 50 A Urine WBC Greater than 50 A Ur Squamous Epith Cells 11-20 A Urine Bacteria 4+ A FMR OB H&P: A/P - Problem List (1) Sacroiliac dysfunction Status: Acute Code(s): M53.3 - SACROCOCCYGEAL DISORDERS, NOT ELSEWHERE CLASSIFIED (2) Status: Acute Discussion: Date/Time: 03/04/19 164 PCP: Loni Park HPI: This 23 yo F presents with sharp back pain that started last night and has gotten worse throughout the day today. Pain is on the right side, does not radiate, worse with movt. When ask to point, she points to R SI joint as the location of most pain. She has vomited 1-2 times today. She states she is currently hungry and would like to eat. Denies burning or blood with urination. Tylenol did not help much with the pain. She denies ever having any pain like this in the past. She denies bleeding or discharge. 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 : no dysuria, no hematuria Skin: no rash, no erythema Psych: denies hx anxiety/depression Vitals: T: 97.6 R: 18 BP: 100/46 P:73 at: 98% on RA PHYSICAL EXAMINATION: General: NAD, alert and oriented x3 HEENT: EOMI, normal sclera Neck: Supple. Full ROM. Heart/Cardiovascular System: RRR, Cap refill < 3 seconds, no rub, no murmur Lungs/Respiratory System: clear to auscultation bilaterally. No increased work of breathing. Room air. Abdomen/Gastro-Intestinal System: no abdominal tenderness, normal bowel sounds, Gravid Extremities: Warm extremities. No cyanosis or edema. Neuro: No gross deficits appreciated Psychiatry: Awake, Alert and cooperative with exam Skin: no lesions, no rashes Musculoskeletal: Tender to palpation over R SI joint, pain with sitting up, no significant CVA tenderness A/P: This is a 23 yo @ 37.0 wks here for back pain # R Sacroilitis - R si joint pain - UA shows many squams, requested cath and cx - No burning or blood with urination pyelo is possible but unlikely with normal white count, no urinary sxs, afebrile. Patient is ready to eat currently. Received Rocephin in ED - Nephrolithiasis possible, but no blood in urine per patient, check cath, normal renal US bilaterally, less likely - Discussed with ED team, cath UA, PO challenge, home with macrobid as long as no further concerns. Tylenol and heating pad discussed. Addendum - Attending - Attending Attestation Date/Time: 03/04/192002 I personally evaluated the patient and discussed the management with Dr. Campos. I agree with the History, Examination, Assessment and Plan documented above.
[2019-03-04 18:23] LABS: Bilirubin Negative (Negative); Blood, Urine Negative (Negative); Clarity Clear (Clear); Glucose, Urine (Dipstick) Normal (Negative); Leukocyte 250 Leu/uL (Negative); Nitrite Negative (Negative); Protein, Urine (Dipstick) 10 mg/dL (Neg-Trace); RBC/HPF 0-3 HPF (0-3); Squamous Epithelial 0-3 HPF (0-3); Urobilinogen Normal mg/dL (Less than 2); WBC/HPF Greater than 50 HPF (0-3)
[2019-03-04 18:31] LABS: Bacteria/HPF Rare-Few HPF (None Seen)
== END 2019-03-04 18:25 | disposition home or self-care (01) ==
LOC: ERS 09:57
DX: O23.02 Infections of kidney in pregnancy, second trimester (principal); O98.812 Other maternal infectious and parasitic diseases complicating pregnancy, second trimester; B37.3 Candidiasis of vulva and vagina; Z3A.17 17 weeks gestation of pregnancy
CPT/HCPCS: 36415; 76770; 80053; 81003; 81015; 85025; 87077; 87086; 87186; 96361; 96365; 96375; A4353; J0696; J2270; Q0162

== ENCOUNTER 2019-03-28 07:41 | Emergency (ER) | payer OTHER ==
[2019-03-28 08:30] LABS: #Eosinphils 0.1 thou/uL (0.0-0.7); #Lymphocytes 1.9 thou/uL (1.20-3.40); #Monocytes 0.4 thou/uL (0.11-0.59); #Neutrophils 5.6 thou/uL (1.40-6.50); %Basophils 0.5 % (0.0-1.0); %Eosinophils 1.1 % (0.0-10.0); %Lymphocytes 23.6 % (21.0-51.0); %Neutrophils 69.8 % (42.0-75.0); Hemoglobin 11.5 g/dL (12.0-16.0); Mean Corpuscular HGB CONC 35.6 g/dL (32.0-36.0); Mean Corpuscular Hemoglobin 30.2 pg (27.0-31.0); Mean Corpuscular Volume 84.8 fL (78.0-98.0); Mean Platelet Volume 8.3 fL (7.4-10.4); Platelet Count 205 thou/uL (130-400); RBC Distribution Width 13.3 % (11.5-14.5)
[2019-03-28 08:31] LABS: Bilirubin Negative (Negative); Blood, Urine Negative (Negative); Clarity Clear (Clear); Glucose, Urine (Dipstick) Normal (Negative); Leukocyte 75 Leu/uL (Negative); Nitrite Negative (Negative); Protein, Urine (Dipstick) Negative (Neg-Trace); RBC/HPF 0-3 HPF (0-3); Squamous Epithelial 0-3 HPF (0-3); Urobilinogen Normal mg/dL (Less than 2); WBC/HPF 0-3 HPF (0-3)
[2019-03-28 08:41] LABS: Bacteria/HPF 1+ HPF (None Seen)
[2019-03-28 08:42] LABS: ALT (SGPT) 23 U/L (8-55); AST (SGOT) 15 U/L (5-34); Albumin 3.8 g/dL (3.5-5.0); Alkaline Phosphatase 63 U/L (40-110); Anion Gap 11 mmol/L (10-20); BUN (Urea Nitrogen) 6 mg/dL (7.0-18.7); Bilirubin, Total 0.3 mg/dL (0.2-1.2); Calc. Creatinine Clearance 0 mL/min (70-130); Calcium 8.9 mg/dL (7.8-10.44); Carbon Dioxide 23 mmol/L (22-29); Chloride 107 mmol/L (98-107); Estimated GFR-MDRD 86; Globulin 3.5 g/dL (2.4-3.5); Glucose 80 mg/dL (70-105); Potassium 3.5 mmol/L (3.5-5.1); Protein, Total 7.3 g/dL (6.0-8.3); Sodium 137 mmol/L (136-145)
== END 2019-03-28 09:04 | disposition home or self-care (01) ==
LOC: ERS 07:41
DX: O23.42 Unspecified infection of urinary tract in pregnancy, second trimester (principal); O99.89 Other specified diseases and conditions complicating pregnancy, childbirth and the puerperium; R53.1 Weakness; O99.342 Other mental disorders complicating pregnancy, second trimester; F41.9 Anxiety disorder, unspecified; F43.10 Post-traumatic stress disorder, unspecified; F32.9 Major depressive disorder, single episode, unspecified; O99.352 Diseases of the nervous system complicating pregnancy, second trimester; G47.00 Insomnia, unspecified; Z3A.20 20 weeks gestation of pregnancy; Z87.11 Personal history of peptic ulcer disease
CPT/HCPCS: 36415; 80053; 81003; 81015; 85025; 87086; 99284

== ENCOUNTER 2019-05-06 17:05 | Day surgery (SDC) | payer OTHER ==
[2019-05-06 17:45] VITALS: BP 117/70; TEMP 98.6; BMI 36.8
[2019-05-06] MEDS ORDERED: hydrALAZINE 20 MG/ML VIAL SLOW IVP PRN (18:10)
--- NOTE | 2019-05-06 18:17 | PDOC.FPROB ---
FMR OB H&P: HPI - History of Present Illness Chief Complaint: Cramping Pain Indentification: 24 yo @ 25.6 weeks History of Present Illness: Pt reports having cramping pain for the last week. Reports had some spotting and mucous on Wed/Thurs. Reports noticing increased vaginal discharge. Reports fruity odor. Denies any vaginal itching or irritation. Reports pain kept increasing in pain today. Reports got real bad when standing up today and thus came in. Pt concerned they are ctx. Denies any urinary sx's. Denies any burning sensation or increased urinary frequency. Denies any fever or chills. Denies any n/v/d/c. Pt reports taking 500 mg of tylenol but not helping much. Primary Care Physician: Xavier FMR OB H&P: Current - Care : 1 Para: 0 Gestational age: 25.6 weeks Due date: 08/13/2019 - OB Labs Blood type: AB RH: positive Antibody Screen: negative HIV: negative RPR: negative HepBsAg: negative Rubella: immune Quad screen: unknown Urine drug screen: not done Gonorrhea: negative Chlamydia: negative Pap Smear: WNL 12/2018 GBS: unknown H&H: 12.2/37.1 FMR OB H&P: History - Past Medical History PMH: Depression, Anxiety, IBS - OB History OB History: UTI in 1st trimester - INTERPRETATIVE DANCER History INTERPRETATIVE DANCER History: Pap normal this year. - Surgical History Sx History: appendectomy, colonoscopy 2019 WNL - Social History Social History: Denies any smoking, alcohol or illicit drug use - Family History Family History: Mother- cervical cancer/mental illness, FMR OB H&P: Medications - Current Home Medications: Medication Instructions Recorded Confirmed Type Clotrimazole [Clotrimazole-7] 1 appful VAG HS 7 Days #1 tube 05/06/19 Rx Allergies/Adverse Reactions: Allergies Allergy/AdvReac Type Severity Reaction Status Date / Time Penicillins Allergy Verified 12/08/18 00:36 FMR OB H&P: ROS - Review of Systems General: denies: fever/chills, weight/appetite/sleep changes, fatigue Eyes: denies: vision changes, double vision ENT: denies: nasal congestion, rhinorrhea, sinus pain/pressure, sore throat Gastrointestinal: reports: cramping. denies: abdominal pain, indigestion, bloating, nausea, vomiting, diarrhea, constipation, bright red blood Genitourinary (Female): reports: vaginal discharge, vaginal bleeding. denies: incontinence, dysuria, hematuria, vaginal pain, vaginal mass/sore, contractions , vaginal pressure Musculoskeletal: denies: pain, stiffness, tenderness Neurologic: denies: numbness, seizures Integumentary: denies: itching, rash, lesions Breast: denies: lumps, bumps Hematologic/Lymphatic: denies: prolonged or excessive bleeding Psychological: denies: depression, anxiety FMR OB H&P: Vital Signs - Maternal Vital signs: Vital Signs - First Documented Temp Pulse Resp BP 98.6 F 88 18 117/70 05/06/19 17:40 05/06/19 17:40 05/06/19 17:40 05/06/19 17:40 - Heart Tones Variability: moderate Acceleration: present Deceleration: absent Category: category 1 [place] contractions every: none FMR OB H&P: Physical Exam - Physical Exam General: NAD, awake, alert and oriented HEENT: normocephalic and atraumatic, grossly normal vision, grossly normal hearing Neck: supple, FROM, trachea midline Chest: non-tender to palpation Heart: RRR, normal S1/S2, no murmurs/rubs/gallops, pulses present, no edema General: CTAB, no respiratory distress, good air movement, no rales/rhonchi, no wheezing Abdomen: soft, gravid, non-tender, bowel sound present, no masses Musculoskeletal: normal gait and station, FROM in all four extremities, no misalignment/asymmetry, no atrophy Neurological: sensation to pain,touch and proprioception grossly normal Skin: no rash, good tugor, capillary refill <2 seconds Psychiatric: intact recent and remote memory, good judgement and insight, normal mood and affect - Pelvic Exam Deviation from normal: Lots of yellow/white vaginal discharge. Irritation noted. Cervix: no masses, no lesions, no blood FMR OB H&P: A/P - Problem List (1) Vaginitis Current Visit: Yes Status: Acute Code(s): N76.0 - ACUTE VAGINITIS (2) Round ligament pain Current Visit: Yes Status: Acute Code(s): N94.9 - UNSP COND ASSOC W FEMALE GENITAL ORGANS AND MENSTRUAL CYCLE (3) Current Visit: No Status: Acute Disposition: 24 yo @ 25.6 weeks presents with cramping pain Vaginitis -Lots of yellow/white discharge noted on pelic exam. Some irritation noted. -VP3 sample taken. -Will d/c with clotrimizole for 7 days and follow up on cx results -UA ordered. Will follow up on results and tx as needed. Round Ligament Pain -advised to stay well hydrated. Advised to use tylenol as needed for pain. Dispo: At this time pt had been monitored for over 30 minutes with no CTX. Cervix closed and no pooling or bleeding noted on pelvic exam. Likely yeast infection noted. Pt will be discharged at this time. Will follow up as needed and tx. Discussion: Date/Time: 05/06/191810 This H&P was discussed with [] and [] who agree with the above documentation and plan.
[2019-05-06 19:07] LABS: Bacteria/HPF None Seen HPF (None Seen); Bilirubin Negative (Negative); Blood, Urine Negative (Negative); Clarity Clear (Clear); Glucose, Urine (Dipstick) 50 mg/dL (Negative); Leukocyte Negative Leu/uL (Negative); Nitrite Negative (Negative); Protein, Urine (Dipstick) Negative (Neg-Trace); RBC/HPF None Seen HPF (0-3); Squamous Epithelial 0-3 HPF (0-3); Urobilinogen Normal mg/dL (Less than 2); WBC/HPF 0-3 HPF (0-3)
[2019-05-06 19:12] LABS: Urine Culture Reflex No No
== END 2019-05-06 18:45 | disposition home or self-care (01) ==
LOC: L&D/OP 17:05
PROVIDERS: ATTEND Obstetrics & Gynecology
DX: O23.592 Infection of other part of genital tract in pregnancy, second trimester (principal); O99.89 Other specified diseases and conditions complicating pregnancy, childbirth and the puerperium; R10.2 Pelvic and perineal pain; Z3A.25 25 weeks gestation of pregnancy; Z88.0 Allergy status to penicillin
CPT/HCPCS: 81001; 87480; 87510; 87660

== ENCOUNTER 2019-05-28 20:43 | Inpatient (IN) | payer OTHER ==
[2019-05-28] MEDS ORDERED: hydrALAZINE 20 MG/ML VIAL SLOW IVP PRN (20:47)
[2019-05-28] MEDS ORDERED: Lactated Ringer's 1,000 ML IV SCH (21:00)
[2019-05-28] MEDS ORDERED: Calcium Gluc 4.6 MEQ/10 ML (100 MG/ML) SLOW IVP PRN (21:06)
[2019-05-28] MEDS: Betamet Acet/Betamet Na Ph 30 MG/5 ML VIAL IM SCH (21:11)
[2019-05-28 21:15] VITALS: BMI 36.8
[2019-05-28] MEDS ORDERED: Magnesium Sulfate 20 GM/WATER 500 ML BAG IVPB SCH (21:15)
[2019-05-28] MEDS: Magnesium Sulfate 20 GM in Dextrose 5% in Water 460 ML IVPB SCH (21:18)
--- NOTE | 2019-05-28 21:37 | HP ---
TIME OF EVALUATION: 2054 until 2109 hours. LOCATION: [facility] bed 2. REASON FOR EVALUATION: Twenty-nine weeks with vaginal bleeding and suspected rupture of membranes. This is a patient of Dr. Mckenzie with Dr. Park covering. HISTORY OF PRESENT ILLNESS: This is a 24-year-old, G1, P0, with the EDC of July the , placing her at 29 weeks and 0 days today. She states that she was having intercourse at approximately 8:00 p.m. with vaginal bleeding and fluid per vagina. The blood was significant and ran down her legs as did the fluid. She denies any other issues. REVIEW OF SYSTEMS: Complete review of systems was completed and is otherwise negative unless specified in the HPI. PAST MEDICAL HISTORY: Negative. PAST SURGICAL HISTORY: Appendectomy in 2016. ALLERGIES: TO PENICILLIN. OB HISTORY: She is a G1, P0. PHYSICAL EXAMINATION: VITAL SIGNS: Blood pressure initially was in the 150 systolic, but now is in the 120s over 80s to 90s and patient is anxious, so I am not sure if these blood pressures are accurate. Pulse is in the 70s, O2 saturation is 99%. GENERAL: She is obviously nervous and preoccupied, but appears in no acute distress. ABDOMEN: Soft and nontender. There is blood down her inner thighs all the way down to her ankles that has dried. I performed a sterile speculum examination and I do not see any gross cervical dilation, but I cannot tell if there is ruptured membranes because there is about 10-15 mL of blood in the posterior fornix. I also pulled out a small clot from the posterior fornix. AmniSure was not collected due to the gross vaginal bleeding. INTERVENTIONS ORDERED: 1. I have ordered magnesium sulfate for neuro protection as she is under 32 weeks. 2. I have ordered the Celestone for lung maturity. 3. I have ordered IV Ancef (penicillin allergy acknowledged) and erythromycin as I suspect rupture of membranes based on her history. 4. I have ordered IV fluids. 5. I have ordered an ultrasound for estimated weight, position, fluid determination, and cervical length. 6. I have collected a VP3 and a GC and chlamydia swab. ASSESSMENT: This is a 24-year-old, G1, P0, at 29 weeks and 0 days with vaginal bleeding and suspected rupture of membranes. PLAN: 1. I am unable to collect an AmniSure due to the jojo bleeding, but based on her story, I do suspect that she is ruptured. I have started IV Ancef and erythromycin, even though she has a penicillin allergy. The benefit of protection of infection is greater than her risk of allergy at this point. 2. I have ordered Celestone for lung maturity and magnesium for neuro protection. These have been discussed with her. 3. I have called and discussed the case with the NICU team and they will come evaluate. 4. Awaiting ultrasound report for findings on the baby and the cervical length. 5. Dr. Park is covering for Dr. Mckenzie and I am about to give check out to her. Job ID: [id number]
[2019-05-28] MEDS: CEFAZOLIN 2 GM in Premix Bag 1 BAG IVPB SCH (21:49)
[2019-05-28 22:08] LABS: Medtox Reader # READER 1
[2019-05-28 22:09] LABS: Amphetamine Not Detected (NotDetected); Barbiturates Screen Not Detected (NotDetected); Benzodiazepine Screen Not Detected (NotDetected); Cocaine Metabolite Screen Not Detected (NotDetected); Medtox Control Line Valid? VALID (VALID); Methadone Not Detected (NotDetected); Methamphetamine Not Detected (NotDetected); Opiate Screen Detected (NotDetected); Oxycodone Screen Not Detected (NotDetected); Phencyclidine (PCP) Not Detected (NotDetected); THC/Cannabinoid Screen Not Detected (NotDetected); Tricyclic Screen Not Detected (NotDetected)
--- NOTE | 2019-05-28 22:09 | PRG ---
DATE OF SERVICE: 05/28/2019 Ultrasound report: In brief, I was present in the room while the home theatre technician performed the ultrasound. The estimated weight is roughly 1550 g. Baby is in a cephalic position. Largest pocket of fluid is normal at 4 and the cervical length is greater than 3 cm. There is possibly a posterior low-lying placenta, but there is no previa. These findings were relayed to Dr. Park. So, as I reviewed with the patient as well, I am actually not sure if she is ruptured or not because of the bleeding that confounded the assessment. I was not able to perform AmniSure for the same reason. I did explain to them that it is more conservative to assume that she is ruptured and administer antibiotics, then to miss that occurrence. They are aware. So right now, my diagnosis is most likely marginal placental separation, but the baby's condition is reassuring. We will continue with steroids and magnesium sulfate per ACOG protocol. Job ID: [id number] MTDD
[2019-05-28 22:12] LABS: #Eosinphils 0.1 thou/uL (0.0-0.7); #Lymphocytes 1.9 thou/uL (1.20-3.40); #Monocytes 0.5 thou/uL (0.11-0.59); #Neutrophils 7.3 thou/uL (1.40-6.50); %Eosinophils 0.7 % (0.0-10.0); %Lymphocytes 19.5 % (21.0-51.0); %Monocytes 5.5 % (0.0-10.0); %Neutrophils 74.4 % (42.0-75.0); Hemoglobin 10.2 g/dL (12.0-16.0); Mean Corpuscular HGB CONC 35.4 g/dL (32.0-36.0); Mean Corpuscular Hemoglobin 29.1 pg (27.0-31.0); Mean Corpuscular Volume 82.4 fL (78.0-98.0); Mean Platelet Volume 7.6 fL (7.4-10.4); Platelet Count 244 thou/uL (130-400); RBC Distribution Width 11.5 % (11.5-14.5); White Blood Cell (WBC) Count 9.8 thou/uL (4.8-10.8)
--- NOTE | 2019-05-28 22:30 | ULT ---
OBSTETRICAL ULTRASOUND: Date: 05-28-19 History: 29-week female with vaginal bleeding. Technique: Multiplanar grayscale sonographic imaging of the gravid uterus obtained. FINDINGS: Cervical length is 3.1-3.4 cm. Placenta is located posteriorly. The tip of the placenta is within venancio roximately 1.6 cm of the internal os consistent with a low lying placenta. No evidence for previa or abruption. Single intrauterine gestation present with vertex presentation. heart rate is 145 beats/minute. Amniotic fluid index is approximately 8.7 cm. biometry: BPD 8 cm 32 weeks 1 day HC 28.6 cm 31 weeks 3 days AC 26.1 cm 30 weeks 2 days FL 5.7 cm 29 weeks 6 days Average age based on ultrasound is 31 weeks 0 days. Estimated date of delivery is 07-30-2019. Estimated weight is 1566 grams, +/- 232 grams. IMPRESSION: Single intrauterine gestation as detailed above. Placenta is low lying, approximately 1.6 cm from the internal os. Cervical length is 3.1-3.4 cm. POS: [facility]
--- NOTE | 2019-05-28 22:39 | PDOC.EVN ---
Event Note - Event Note Event Note: UTOX show pos OPIATES....but she recieved narcotics in the ambulance per order. I do not suspect recreational opiate use. I have relayed this to Dr Park
[2019-05-28 22:55] LABS: Syphilis Antibody Nonreactive (Nonreactive); Syphilis Antibody Index 0.08 S/CO (<1.00 Non-Reactive)
[2019-05-28 23:02] LABS: HBSAg Index 0.14 S/CO (0-0.99); HIV (1/2) Antibody/Antigen Non-Reactive (NonReactive); HIV 1/2 INDEX 0.05 S/CO (<1.00); Hep B Surf Ag Non-Reactive S/CO (NonReactive)
[2019-05-28] MEDS: Erythromycin 500 MG in Sodium Chloride 0.9% 250 ML 250 ML IVPB SCH (23:49)
[2019-05-29] MEDS ORDERED: Promethazine HCl 25 MG/ML VIAL IM/IV PRN (00:05)
[2019-05-29] MEDS ORDERED: Acetaminophen 500 MG TAB PO PRN (00:05)
[2019-05-29] MEDS: Magnesium Sulfate 20 GM in Dextrose 5% in Water 460 ML IVPB SCH (04:53)
[2019-05-29] MEDS: CEFAZOLIN 2 GM in Premix Bag 1 BAG IVPB SCH ×3 (05:15→23:17)
[2019-05-29] MEDS: Erythromycin 500 MG in Sodium Chloride 0.9% 250 ML 250 ML IVPB SCH ×3 (07:40→20:11)
[2019-05-29] MEDS ORDERED: hydrALAZINE 20 MG/ML VIAL SLOW IVP PRN (19:22)
[2019-05-29] MEDS ORDERED: Promethazine HCl 25 MG/ML VIAL IM PRN (19:22)
[2019-05-29] MEDS ORDERED: Zolpidem Tartrate 5 MG TAB PO PRN (19:22)
[2019-05-29] MEDS ORDERED: FLU VACC QS2019-20(6MOS UP)/PF 60 MCG/0.5 ML SYRINGE IM ONE (21:00)
[2019-05-29] MEDS: Betamet Acet/Betamet Na Ph 30 MG/5 ML VIAL IM SCH (21:34)
[2019-05-30] MEDS: Erythromycin 500 MG in Sodium Chloride 0.9% 250 ML 250 ML IVPB SCH ×4 (04:17→22:53)
[2019-05-30] MEDS: CEFAZOLIN 2 GM in Premix Bag 1 BAG IVPB SCH ×3 (06:53→21:36)
[2019-05-30] MEDS: Prenatal Vitamin 1 TAB PO SCH ×2 (11:11)
[2019-05-31] MEDS: Erythromycin 500 MG in Sodium Chloride 0.9% 250 ML 250 ML IVPB SCH ×2 (05:06→10:22)
[2019-05-31] MEDS: CEFAZOLIN 2 GM in Premix Bag 1 BAG IVPB SCH (06:51)
[2019-05-31 07:36] LABS: Chlamydia by PCR Not Detected (NotDetected); GC by PCR Not Detected (NotDetected)
--- NOTE | 2019-05-31 08:21 | ULT ---
EXAM: Limited OB ultrasound COMPARISON: None HISTORY: Possible premature rupture of membranes. TECHNIQUE: Multiplanar grayscale and color Doppler images were obtained in a transabdominal ult rasound. FINDINGS: There is a single live intrauterine with heart rate of 150 bpm. The fetus is in v ertex presentation. The placenta is posterior in location without focal abnormality. ASHLEY is 13.5 cm which is normal. The cervix is normal in length. There is no evidence of placenta previa. IMPRESSION: Normal ASHLEY
[2019-05-31] MEDS: Prenatal Vitamin 1 TAB PO SCH (09:38)
[2019-05-31 12:10] VITALS: BP 103/52; TEMP 97.8
--- NOTE | 2019-06-01 07:32 | ULT ---
Ultrasound obstetrical Limited: 05/29/2019 HISTORY: 24-year-old female in second trimester . The study was ordered to evaluate ASHLEY only. FINDINGS: Amniotic fluid index is 14 cm. IMPRESSION: ASHLEY = 14 cm
--- NOTE | 2019-06-02 04:11 | PQF ---
TUSHAR WILL HECTOR [id number] CLINICAL DOCUMENTATION CLARIFICATION FORM: POST DISCHARGE Addendum to original discharge summary date: __Patient stable at discharge Late entry note date: __ DATE: 06/02/2019 ATTN: Rico Levy Please exercise your independent, professional judgment in responding to the clarification form. Clinical indicators are provided on the bottom of this form for your review Can you please further clarify is Marginal placental separation is ruled in or ruled out? Marginal placental separation [ ] Ruled in diagnosis [ ] Continue to treat [ ] Resolved [ ] Ruled out diagnosis [ ] Cannot rule out diagnosis [ ] Other diagnosis [ x] Unable to determine In addition, please specify: Present on Admission (POA): [ x ] Yes [ ] No [ ] Unable to determine For continuity of documentation, please document condition throughout progress notes and discharge summary. Thank You. CLINICAL INDICATORS - SIGNS / SYMPTOMS / LABS obstetric discharge summary 05/29 p.1- "antepartum bleeding" PN 05/28 Dr. Saab- most likely marginal placental separation obstetric discharge summary 05/29 p.1- "post coital bleed and LOF" Ultrasound 05/31/19 p.1- "normal ASHLEY" Ultrasound 05/28 p.2- "placenta is low lying , approximately 1.6 cm from internal OS" RISK FACTORS having sexual intercourse H and P pg.1 Vaginal bleeding- H and P pg.1 29weeks- H and P pg.1 TREATMENTS Ultrasound 05/28 Ultrasound follow-up 06/01/19 continue with steroids and magnesium sulfate as per ACOG protocol-PN 05/28 [facility] p.1 IV Fluids- MAR (This form is maintained as a part of the permanent medical record) 2014 [employer], [facility]. All Rights Reserved [email or web address] [not [email or web address]] TUSHAR WILL HECTOR [id number] CLINICAL DOCUMENTATION CLARIFICATION FORM: POST DISCHARGE Addendum to original discharge summary date: ___Stable at discharge Late entry note date: __ DATE: 06/02/2019 ATTN: Rico Levy Please exercise your independent, professional judgment in responding to the clarification form. Clinical indicators are provided on the bottom of this form for your review Can you please further clarify is Marginal placental separation is ruled in or ruled out? Marginal placental separation [ ] Ruled in diagnosis [ ] Continue to treat [ ] Resolved [ ] Ruled out diagnosis [ ] Cannot rule out diagnosis [ ] Other diagnosis [ x ] Unable to determine In addition, please specify: Present on Admission (POA): [ x ] Yes [ ] No [ ] Unable to determine For continuity of documentation, please document condition throughout progress notes and discharge summary. Thank You. CLINICAL INDICATORS - SIGNS / SYMPTOMS / LABS obstetric discharge summary 05/29 p.1- "antepartum bleeding" PN 05/28 Dr. Saab- most likely marginal placental separation obstetric discharge summary 05/29 p.1- "post coital bleed and LOF" Ultrasound 05/31/19 p.1- "normal ASHLEY" Ultrasound 05/28 p.2- "placenta is low lying , approximately 1.6 cm from internal OS" RISK FACTORS having sexual intercourse H and P pg.1 Vaginal bleeding- H and P pg.1 29weeks- H and P pg.1 TREATMENTS Ultrasound 05/28 Ultrasound follow-up 06/01/19 continue with steroids and magnesium sulfate as per ACOG protocol-PN 05/28 [facility] p.1 IV Fluids- MAR (This form is maintained as a part of the permanent medical record) 2014 [employer], [facility]. All Rights Reserved Ramirez [email or web address] [not provided] ASHLY
== END 2019-05-31 13:45 | disposition home or self-care (01) | DRG 832 ==
LOC: L&D/OP 20:43 → L&D 05-29 05:29 → 3SW 05-29 20:53
PROVIDERS: ADMIT Obstetrics & Gynecology; ATTEND Obstetrics & Gynecology
DX: O42.913 Preterm premature rupture of membranes, unspecified as to length of time between rupture and onset of labor, third trimester (principal); O44.43 Low lying placenta NOS or without hemorrhage, third trimester; O46.8X3 Other antepartum hemorrhage, third trimester; O99.013 Anemia complicating pregnancy, third trimester; D64.9 Anemia, unspecified; Z3A.29 29 weeks gestation of pregnancy; Z88.0 Allergy status to penicillin; Z90.49 Acquired absence of other specified parts of digestive tract
CPT/HCPCS: 36415; 51702; 59025; 76805; 76815; 76816; 80306; 85025; 86780; 86900; 86901; 87081; 87340; 87389; 87480; 87491; 87510; 87591; 87660; 99285; J0690; J0702; J1364; J2550; J3475; J7050; J7070

== ENCOUNTER 2019-07-14 22:18 | Day surgery (SDC) | payer OTHER ==
[2019-07-14 22:48] VITALS: BP 138/89; TEMP 98; BMI 39.4
[2019-07-14] MEDS ORDERED: hydrALAZINE 20 MG/ML VIAL SLOW IVP PRN (23:10)
--- NOTE | 2019-07-14 23:13 | PDOC.FPROB ---
FMR OB H&P: HPI - History of Present Illness Chief Complaint: abd pain Indentification: 24 y/o @ 35.5 WGA History of Present Illness: Patient presents with abd pain that started 3 days ago and has been coming and going worse when she is up moving around. She reports it got worse this AM and has been happening every 5 minutes. It is located in her lower abdomen. She denies VB, d/c, LOF. Endorses movement. Primary Care Physician: Dr. Mckenzie FMR OB H&P: Current - Care : 1 Para: 0 Gestational age: 35.5 - OB Labs Blood type: AB RH: positive Antibody Screen: negative HIV: negative RPR: negative HepBsAg: negative Rubella: immune Quad screen: unknown Gonorrhea: negative Chlamydia: negative 1 hour gtt: 107 FMR OB H&P: History - Past Medical History PMH: Depression, Anxiety, IBS - OB History OB History: G1 - EDUCATION INTERN History EDUCATION INTERN History: h/o GC/CT prior to , normal pap in 12/2018 - Surgical History Sx History: Appendectomy - Social History Social History: Denies tobacco, EtOH, or drug use - Family History Family History: None FMR OB H&P: Medications - Current Home Medications: Medication Instructions Recorded Confirmed Type No Known 07/14/19 07/14/19 History Allergies/Adverse Reactions: Allergies Allergy/AdvReac Type Severity Reaction Status Date / Time Penicillins Allergy Mild Rash Verified 07/14/19 22:43 FMR OB H&P: ROS - Review of Systems General: denies: fever/chills, weight/appetite/sleep changes Eyes: denies: vision changes, double vision ENT: denies: nasal congestion, rhinorrhea, sore throat Cardiovascular: denies: chest pain, edema Respiratory: denies: cough, shortness of breath Gastrointestinal: reports: abdominal pain, nausea Genitourinary (Female): denies: dysuria, hematuria, vaginal discharge, vaginal bleeding, vaginal pressure Musculoskeletal: reports: pain (lower back pain). denies: swelling Neurologic: denies: syncope, seizures Integumentary: denies: itching, rash Endocrine: denies: cold intolerance, heat intolerance Hematologic/Lymphatic: denies: prolonged or excessive bleeding, enlarged lymph nodes FMR OB H&P: Vital Signs - Maternal Vital signs: Vital Signs - First Documented Temp Pulse Resp BP 98.0 F 105 H 20 138/89 07/14/19 22:41 07/14/19 22:41 07/14/19 22:41 07/14/19 22:41 - Heart Tones Baseline: 140 Variability: moderate Acceleration: present Deceleration: absent Category: category 1 [place] contractions every: none FMR OB H&P: Physical Exam - Physical Exam General: NAD, awake, alert and oriented HEENT: normocephalic and atraumatic, MMM, conjunctiva clear, grossly normal vision, grossly normal hearing Neck: supple, no LAD Heart: pulses present, no edema General: no respiratory distress, no retractions Abdomen: soft, gravid, other (mildly tender in lower abdomen) Musculoskeletal: pulses present, FROM in all four extremities Neurological: no tremor, no focal deficit Skin: good tugor, capillary refill <2 seconds Lymphatic: no unusual bruising or bleeding, no purpura Psychiatric: intact recent and remote memory, good judgement and insight - Pelvic Exam SVE: 3 FMR OB H&P: A/P - Problem List (1) Current Visit: No Status: Acute Qualifiers: Weeks of gestation: 35 weeks Qualified Code(s): Z3A.35 - 35 weeks gestation of Assessment and Plan: No signs/symptoms of labor Cat 1 FHT -Continue routine OB care with Dr. Mckenzie (2) Round ligament pain Current Visit: No Status: Acute Code(s): N94.9 - UNSP COND ASSOC W FEMALE GENITAL ORGANS AND MENSTRUAL CYCLE Assessment and Plan: Gave reassurance about normal aches and pains of . No contractions seen on monitor and no cervical change since her last office visit with Dr. Mckenzie -Recommend tylenol as needed for pain -Encourage oral hydration -Continue routine f/u with Dr. Mckenzie Disposition: d/c home with close follow-up with Dr. Mckenzie Discussion: Date/Time: 07/14/192310 This H&P was discussed with Dr. Quintana who agrees with the above documentation and plan. Signature: Virgie Brandon MD, PGY-3 Addendum - Attending - Attending Attestation Date/Time: 07/14/19 [id number] I personally evaluated the patient and discussed the management with Dr. Brandon. I agree with the History, Examination, Assessment and Plan documented above.
[2019-07-15] MEDS ORDERED: FLU VACC QS2019-20(6MOS UP)/PF 60 MCG/0.5 ML SYRINGE IM ONE (09:00)
== END 2019-07-14 23:35 | disposition home or self-care (01) ==
LOC: L&D/OP 22:18
PROVIDERS: ATTEND Obstetrics & Gynecology
DX: O99.89 Other specified diseases and conditions complicating pregnancy, childbirth and the puerperium (principal); R10.2 Pelvic and perineal pain; Z3A.35 35 weeks gestation of pregnancy; Z88.0 Allergy status to penicillin
CPT/HCPCS: 99282

== ENCOUNTER 2019-07-22 02:22 | Observation (INO) | payer OTHER ==
[2019-07-22 02:50] VITALS: BMI 39.4
[2019-07-22] MEDS ORDERED: hydrALAZINE 20 MG/ML VIAL SLOW IVP PRN ×2 (03:50→04:01)
--- NOTE | 2019-07-22 03:53 | PDOC.LDHP ---
Labor and Delivery H&P HPI: Patient of Dr Mckenzie 24 yo G1 at 36 weeks 6 days here with possible CTX. No VB, no LOF, good FM. Denies issues. Review of Systems: complete ROS performed and negative as per HPI Current gestational age (weeks): 36 (6) Dating criteria: last menstrual period Grav: 1 Para: 0 OB History Details: G1 Current complications: none Abnormal US findings: No Past Medical History: Past HX IBS; Hx GC and Chl and trich in 2016...treated Current medications: pre- vitamins Previous surgical history: none Allergies/Adverse Reactions: Allergies Allergy/AdvReac Type Severity Reaction Status Date / Time Penicillins Allergy Mild Rash Verified 07/22/19 02:51 - Physical Exam Vital signs reviewed and normal: yes (122/88 afebrile pulse 80s) General: NAD Heart: RRR Lungs: CTAB - Vaginal Exam cm dilated: 2 (same as last wednesday) Effacement: 50% Station: -2 - Assessment Late with threatened labor, no cx change from last wednesday check - Plan Plan: observation in L&D (Offer pain meds prn, 2 hr obs. If no change or labor progress, home with outpatient follow up as latent phase. Otherwise, admit. No stroids as already 36 weeks 6 days.)
[2019-07-22] MEDS ORDERED: Promethazine HCl 25 MG/ML VIAL IM PRN (04:01)
[2019-07-22] MEDS ORDERED: Lidocaine 1% (PF) 30 ML VIAL SC PRN (04:01)
[2019-07-22] MEDS ORDERED: Butorphanol Tartrate 1 MG/ML VIAL SLOW IVP PRN (04:01)
[2019-07-22] MEDS ORDERED: Ibuprofen 800 MG TAB PO PRN (04:01)
[2019-07-22] MEDS ORDERED: HYDROcodone/Acetaminophen 5/325 mg Tablet PO PRN ×2 (04:01)
[2019-07-22] MEDS ORDERED: NS / Oxytocin 40 units/1000ml 1,000 ML IV PRN (04:01)
--- NOTE | 2019-07-22 04:04 | PDOC.EVN ---
Event Note - Event Note Event Note: I have examined the patient myself, just now. I find her to be 380/-1/cephalic. I will admit as she is uncomfortable with her CTX. Direct admit orders placed. States GBS negative, If no CX change after some hrs of observation, may DC home as under 37 weeks.
[2019-07-22] MEDS: Lactated Ringer's 1,000 ML IV SCH ×2 (04:34→12:23)
[2019-07-22 05:15] LABS: Hemoglobin 11.4 g/dL (12.0-16.0); Mean Corpuscular HGB CONC 34.2 g/dL (32.0-36.0); Mean Corpuscular Hemoglobin 26.8 pg (27.0-31.0); Mean Corpuscular Volume 78.3 fL (78.0-98.0); Mean Platelet Volume 8.7 fL (7.4-10.4); Platelet Count 247 thou/uL (130-400); RBC Distribution Width 12.7 % (11.5-14.5); Red Blood Cell (RBC) Count 4.26 mill/uL (4.20-5.40); White Blood Cell (WBC) Count 11.3 thou/uL (4.8-10.8)
[2019-07-22] MEDS: Ondansetron PF 4 MG/2 ML Vial IVP PRN ×2 (05:15→10:10)
[2019-07-22 05:51] LABS: Syphilis Antibody Nonreactive (Nonreactive); Syphilis Antibody Index 0.07 S/CO (<1.00 Non-Reactive)
[2019-07-22 05:53] LABS: HBSAg Index 0.12 S/CO (0-0.99); HIV (1/2) Antibody/Antigen Non-Reactive (NonReactive); HIV 1/2 INDEX 0.15 S/CO (<1.00); Hep B Surf Ag Non-Reactive S/CO (NonReactive)
--- NOTE | 2019-07-22 16:33 | PDOC.LDPN ---
Labor & Delivery Progress Note - Subjective Subjective: comfortable - Objective Vital signs reviewed and normal: yes General: NAD, resting Uterine fundus: non tender Dilation: 2 Effacement: 75% Station: -3 -: The patient has been here approximately 12 hours now, and I find no cervical change. She still has occasional contractions which are painful. She states she lives about 10 minutes from the hospital and feels fine to go home. By my exam, she is now a tight 2cm dilates, 70% effaced, -3 station, Very Posterior, medium consistency. I do not feel that she is in active labor, and she could possible goes days more before delivering. I will DC her to home with labor precautions. Also, VP3 and Clean Catch UA ordered to rule out infectious cause of false labor.
[2019-07-22 17:03] LABS: Bacteria/HPF 1+ HPF (None Seen); Bilirubin Negative (Negative); Blood, Urine Negative (Negative); Clarity Clear (Clear); Glucose, Urine (Dipstick) 50 mg/dL (Negative); Leukocyte Negative Leu/uL (Negative); Nitrite Negative (Negative); Protein, Urine (Dipstick) Negative (Neg-Trace); RBC/HPF 0-3 HPF (0-3); Squamous Epithelial 0-3 HPF (0-3); Urobilinogen Normal mg/dL (Less than 2); WBC/HPF 0-3 HPF (0-3)
[2019-07-22 17:06] LABS: Urine Culture Reflex Yes Yes
[2019-07-22] MEDS ORDERED: FLU VACC QS2019-20(6MOS UP)/PF 60 MCG/0.5 ML SYRINGE IM ONE (21:00)
== END 2019-07-22 17:33 | disposition home health service (06) ==
LOC: L&D/OP 02:22 → INTOOBSV 04:52 → L&D 04:52
PROVIDERS: ADMIT Obstetrics & Gynecology; ATTEND Obstetrics & Gynecology
DX: O47.03 False labor before 37 completed weeks of gestation, third trimester (principal); Z3A.36 36 weeks gestation of pregnancy; Z88.0 Allergy status to penicillin
CPT/HCPCS: 36415; 81001; 85027; 86780; 86850; 86900; 86901; 87086; 87340; 87389; 87480; 87510; 87660; 96372; 96374; 96376; 99285; G0378; J0595; J2405

== ENCOUNTER 2019-07-27 04:42 | Inpatient (IN) | payer OTHER ==
[2019-07-27] MEDS ORDERED: hydrALAZINE 20 MG/ML VIAL SLOW IVP PRN ×3 (05:40→22:33)
--- NOTE | 2019-07-27 06:43 | PRG ---
DATE OF SERVICE: 07/27/2019 PRIMARY OB: Dr. Fermin Mckenzie. CHIEF COMPLAINT: Abdominal pain. HISTORY OF PRESENT ILLNESS: The patient is a 24-year-old, G1, P0 female with an intrauterine at 37 weeks and 4 days, presenting to Labor and Delivery after experiencing increasing painful contractions beginning at about 2 o'clock this morning. The patient denies any vaginal bleeding or leakage of fluid. She denies any headache, chest pain, shortness of breath, nausea, vomiting, diarrhea, constipation, hip problems, knee problems, muscle weakness. No bleeding, leakage of fluid, or urinary urgency or frequency. The patient also denies any rashes. PAST MEDICAL HISTORY: Depression, anxiety, irritable bowel syndrome. PAST SURGICAL HISTORY: Appendectomy. ALLERGIES: PENICILLIN. SOCIAL HISTORY: Denies drug, alcohol, or tobacco use. OB LABS: Blood type is AB-positive, antibody screen is negative. She is rubella immune. RPR is nonreactive. Hepatitis B surface antigen nonreactive. HIV is negative. GC, chlamydia negative and GBS negative. REVIEW OF SYSTEMS: Per HPI. PHYSICAL EXAMINATION: VITAL SIGNS: Blood pressure 127/83, heart rate of 66, respiratory rate of 16. GENERAL: She appears to be in no acute distress. She is alert, oriented, cooperative, and pleasant to interact with. HEAD: Normocephalic, atraumatic. LUNGS: Clear to auscultation bilaterally. HEART: Has regular rate and rhythm. ABDOMEN: Gravid, soft, nontender. EXTREMITIES: Nontender. Has minimal edema, but symmetrical. Cervical exam per nursing staff is 275, -2 station, unchanged from 5 days ago. heart tracing shows a baseline in the 130s with moderate long-term variability, positive 15 x 15 accelerations, no decelerations. Tocometer showing what appears to be irritability, unable to make out any regular contraction pattern. ASSESSMENT AND PLAN: The patient is a 24-year-old, G1, P0 female with an intrauterine at 37 weeks and 4 days, here being evaluated for labor. The patient has no evidence at this time of active labor. She is having contractions and is being sent to walking per patient's desire for the next 2 to 3 hours, at which point, we will recheck her and see if she has any cervical change. Dr. Mckenzie has been updated. Fetus has a reactive NST and category 1 tracing. If the patient make cervical change, the patient will be admitted to Dr. Mckenzie. If not, we will discuss going home with or without medication for pain relief. Job ID: [id number]
[2019-07-27] MEDS ORDERED: Butorphanol Tartrate 1 MG/ML VIAL SLOW IVP SCH (07:40)
[2019-07-27] MEDS: Lactated Ringer's 1,000 ML IV SCH ×3 (08:00→19:24)
[2019-07-27 08:41] LABS: Hemoglobin 11.4 g/dL (12.0-16.0); Mean Corpuscular HGB CONC 34.6 g/dL (32.0-36.0); Mean Corpuscular Hemoglobin 26.9 pg (27.0-31.0); Mean Corpuscular Volume 77.9 fL (78.0-98.0); Mean Platelet Volume 8.7 fL (7.4-10.4); Platelet Count 239 thou/uL (130-400); RBC Distribution Width 12.8 % (11.5-14.5); Red Blood Cell (RBC) Count 4.24 mill/uL (4.20-5.40); White Blood Cell (WBC) Count 10.5 thou/uL (4.8-10.8)
[2019-07-27] MEDS ORDERED: Butorphanol Tartrate 1 MG/ML VIAL ONE (08:45)
[2019-07-27] MEDS ORDERED: FLU VACC QS2019-20(6MOS UP)/PF 60 MCG/0.5 ML SYRINGE IM ONE (09:00)
[2019-07-27] MEDS ORDERED: Butorphanol Tartrate 1 MG/ML VIAL SLOW IVP PRN (09:21)
[2019-07-27] MEDS ORDERED: Promethazine HCl 25 MG/ML VIAL IM PRN ×3 (09:21→21:50)
[2019-07-27] MEDS ORDERED: NS / Oxytocin 40 units/1000ml 1,000 ML IV PRN (09:21)
[2019-07-27] MEDS ORDERED: Lidocaine 1% (PF) 30 ML VIAL SC PRN (09:21)
[2019-07-27] MEDS ORDERED: Ondansetron PF 4 MG/2 ML Vial IVP PRN ×4 (09:21→22:33)
[2019-07-27] MEDS ORDERED: Ibuprofen 800 MG TAB PO PRN (09:21)
[2019-07-27] MEDS ORDERED: NS w/ Oxytocin 10 units 500 ML IV SCH (09:30)
[2019-07-27] MEDS ORDERED: Bupivacaine/Epinephrine 0.25% 30 ML VIAL ONE (09:32)
[2019-07-27] MEDS ORDERED: Bupivacaine 0.25% HCL 30 ML VIAL ONE (09:32)
[2019-07-27] MEDS ORDERED: Bupivacaine PF 0.5% 30 ML VIAL ONE (09:32)
[2019-07-27 09:33] VITALS: BMI 39.4
[2019-07-27 10:25] LABS: HBSAg Index 0.19 S/CO (0-0.99); Hep B Surf Ag Non-Reactive S/CO (NonReactive); Syphilis Antibody Nonreactive (Nonreactive); Syphilis Antibody Index 0.09 S/CO (<1.00 Non-Reactive)
[2019-07-27] MEDS ORDERED: Fentanyl 4 mcg/Bup 0.1% Cadd 100 ML ONE (13:33)
[2019-07-27] MEDS ORDERED: Lactated Ringer's 500 ML IV PRN (15:06)
[2019-07-27] MEDS ORDERED: Naloxone HCl 0.4 mg/ml Vial IVP PRN ×4 (15:06→21:50)
[2019-07-27] MEDS ORDERED: EPHEDRINE 25 MG/5 ML SYRINGE SLOW IVP PRN (15:06)
[2019-07-27] MEDS ORDERED: Acetaminophen 325 MG TAB PO PRN ×2 (15:06→22:33)
[2019-07-27] MEDS ORDERED: diphenhydrAMINE 50 MG/ML VIAL IVP PRN ×2 (15:06→21:50)
[2019-07-27] MEDS ORDERED: Fentanyl 4 mcg/Bupivacaine 0.1% Cassette 100 ML EPIDURAL SCH (15:15)
[2019-07-27] MEDS ORDERED: Communication Order-Pharmacy FS SCH ×2 (15:15→22:00)
[2019-07-27] MEDS ORDERED: Fentanyl 100 MCG/2 ML VIAL ONE (15:29)
[2019-07-27] MEDS ORDERED: Terbutaline Sulfate 1 MG/ML VIAL ONE (19:08)
--- NOTE | 2019-07-27 19:18 | PDOC.EVN ---
Event Note - Event Note Event Note: OBGYN institutional research coordinator Called into L[facility] for FHT decels to 60s. I arrived about 1 minute after call, FHTs were back into 110s then 120s. Patient was on all 4s, resting on pillows. Terb X 1 had been given, pit off. No evidence cord prolapse per RN exam. CX was 4cm per their check. Dr Magaly hodges for eval. baby back up to 120s after I arrived.
[2019-07-27] MEDS ORDERED: Ondansetron PF 4 MG/2 ML Vial ONE (20:37)
[2019-07-27] MEDS ORDERED: Ketorolac Tromethamine 30 MG/ML VIAL ONE (20:37)
[2019-07-27] MEDS ORDERED: Dexamethasone 4 mg/ml Vial ONE (20:37)
[2019-07-27] MEDS ORDERED: Lidocaine 2% MPF 10 ML AMP (For Epidural Use) ONE (20:37)
[2019-07-27] MEDS ORDERED: Oxytocin 10 UNITS/ML VIAL ONE (20:37)
[2019-07-27] MEDS ORDERED: diphenhydrAMINE 50 MG/ML VIAL ONE (20:37)
[2019-07-27] MEDS ORDERED: Clindamycin/D5W 900 MG in Premix Bag 1 BAG IVPB SCH (21:07)
[2019-07-27] MEDS ORDERED: Clindamycin/D5W 900 mg/50 ml Premix Bag ONE (21:07)
[2019-07-27] MEDS ORDERED: Gentamicin Sulfate 100 MG in Premix Bag 1 BAG IVPB SCH (21:30)
[2019-07-27] MEDS ORDERED: MORPHINE 5 MG/10 ML PF VIAL ONE (21:40)
[2019-07-27] MEDS ORDERED: Meperidine HCl/PF 25 MG/ML VIAL ONE (21:42)
[2019-07-27] MEDS ORDERED: L&D-Morphine 4 MG/ML VIAL SLOW IVP PRN (21:50)
[2019-07-27] MEDS ORDERED: Ondansetron HCl/PF 4 MG/2 ML Vial IVP PRN (21:50)
[2019-07-27] MEDS ORDERED: HYDROmorphone 2 MG/ML VIAL SLOW IVP PRN (21:50)
[2019-07-27] MEDS ORDERED: Promethazine HCl 25 MG SUPP PR PRN (21:50)
[2019-07-27] MEDS ORDERED: Naloxone HCl 0.4 mg/ml Vial IV PRN (21:50)
[2019-07-27] MEDS ORDERED: Meperidine HCl/PF 25 MG/ML VIAL SLOW IVP PRN (21:50)
[2019-07-27 21:54] LABS: Actual Bicarbonate (HCO3v) 22 mEq/L (22-28); Base Excess -4.2 mEq/L (-2.0 to +3.0); pH (Cord, venous) 7.32 (7.32-7.43)
[2019-07-27 22:01] LABS: Actual Bicarbonate (HCO3a) 23.6 mEq/L (22-28)
[2019-07-27] MEDS ORDERED: Ketamine 50 MG/ML (10ML VIAL) ONE (22:01)
[2019-07-27] MEDS ORDERED: HYDROcodone/Acetaminophen 5/325 mg Tablet PO PRN (22:33)
[2019-07-27] MEDS ORDERED: Bisacodyl 10 MG SUPP PR PRN (22:33)
[2019-07-27] MEDS ORDERED: Lanolin Ointment 7 GM TUBE TOP PRN (22:33)
[2019-07-27] MEDS ORDERED: Misoprostol 200 MCG TAB PR PRN (22:33)
[2019-07-27] MEDS ORDERED: Zolpidem Tartrate 5 MG TAB PO PRN (22:33)
[2019-07-27] MEDS ORDERED: Meperidine HCl/PF 25 MG/ML VIAL IM PRN (22:33)
[2019-07-27] MEDS ORDERED: diphenhydrAMINE 25 MG CAP PO PRN (22:33)
[2019-07-27] MEDS ORDERED: NS / Oxytocin 40 units/1000ml 1,000 ML IV SCH (23:00)
[2019-07-28] MEDS: Lactated Ringer's 1,000 ML IV SCH ×4 (00:10→23:45)
[2019-07-28] MEDS ORDERED: Morphine 4 MG/ML VIAL ONE (00:18)
[2019-07-28] MEDS: Ketorolac Tromethamine 30 MG/ML VIAL IVP SCH ×4 (04:27→22:16)
[2019-07-28 05:51] LABS: Hemoglobin 9.5 g/dL (12.0-16.0); Mean Corpuscular HGB CONC 33.7 g/dL (32.0-36.0); Mean Corpuscular Hemoglobin 26.4 pg (27.0-31.0); Mean Corpuscular Volume 78.4 fL (78.0-98.0); Mean Platelet Volume 8.9 fL (7.4-10.4); Platelet Count 199 thou/uL (130-400); RBC Distribution Width 13.1 % (11.5-14.5); Red Blood Cell (RBC) Count 3.59 mill/uL (4.20-5.40); White Blood Cell (WBC) Count 16.8 thou/uL (4.8-10.8)
[2019-07-28] MEDS: Prenatal Vitamin 1 TAB PO SCH (08:45)
[2019-07-28] MEDS: Ferrous Sulfate 325 MG TAB PO SCH ×2 (08:45→17:09)
[2019-07-28] MEDS: Simethicone Chewable 80 MG TAB PO PRN (08:46)
[2019-07-28] MEDS: Docusate Calcium (SURFAK) 240 MG CAP PO SCH ×2 (08:46→22:18)
[2019-07-28] MEDS ORDERED: Adacel (T-DAP) 0.5 ML SYRINGE IM ONE (09:00)
[2019-07-28] MEDS ORDERED: Sodium Chloride 0.9% 10 ML ONE ×3 (11:06→22:12)
[2019-07-29] MEDS: HYDROcodone/Acetaminophen 5/325 mg Tablet PO PRN ×3 (04:22→17:39)
[2019-07-29] MEDS: Ibuprofen 800 MG TAB PO SCH ×3 (06:11→21:08)
[2019-07-29] MEDS: Lactated Ringer's 1,000 ML IV SCH ×4 (09:12→21:57)
[2019-07-29] MEDS: Ferrous Sulfate 325 MG TAB PO SCH ×2 (09:12→17:37)
[2019-07-29] MEDS: Docusate Calcium (SURFAK) 240 MG CAP PO SCH ×2 (09:12→21:08)
[2019-07-29] MEDS: Prenatal Vitamin 1 TAB PO SCH (09:13)
[2019-07-29] MEDS: Simethicone Chewable 80 MG TAB PO PRN (09:17)
[2019-07-29 22:13] VITALS: TEMP 98.3
[2019-07-30] MEDS: HYDROcodone/Acetaminophen 5/325 mg Tablet PO PRN (02:42)
[2019-07-30] MEDS: Ibuprofen 800 MG TAB PO SCH (05:24)
[2019-07-30] MEDS: Ferrous Sulfate 325 MG TAB PO SCH (08:41)
[2019-07-30] MEDS: Docusate Calcium (SURFAK) 240 MG CAP PO SCH (08:41)
[2019-07-30] MEDS: Prenatal Vitamin 1 TAB PO SCH (08:43)
[2019-07-30 09:12] VITALS: BP 101/54
--- NOTE | 2019-07-30 17:08 | OP ---
DATE OF PROCEDURE: 07/27/2019 PRIMARY SURGEON: Farheen Mckenzie MD RESIDENT SURGEON: Miriam Pope DO. PROCEDURE PERFORMED: Primary low transverse section. PRIMARY DIAGNOSES: 1. Term intrauterine . 2. Arrest of dilation. 3. Persistent category II strip. 4. Recurrent vaginitis. 5. History of third trimester bleeding. POSTOPERATIVE DIAGNOSES: 1. Term intrauterine , delivered. 2. Primary low-transverse section. 3. Persistent category II strip. 4. Arrest of dilation INDICATIONS: This is a 24-year-old, G 1, P 0 at 37.4 weeks gestation who presented early childhood teacher of 07/27 and was noted to be in early labor. Patient progressed from 2cm to 4cm over a period of only 2 hours. During the course of the day, she had variable decelerations and patient stalled at 4 cm dilation. There was a 5-minute period where bradycardia did occur but heart tones recovered. After discussion with the patient in regard to options, the patient decided to proceed with a low-transverse . DESCRIPTION OF PROCEDURE: After risks, benefits, and alternatives were discussed with the patient, she gave informed consent. She was taken back to the operating room. She was laid in the supine position in a left lateral tilt and prepped and draped in the usual sterile fashion. The patient is penicillin allergic and thus she was given clindamycin 900 mg and gentamicin 100 mg prior to the procedure. A time-out was performed. A Pfannenstiel incision was made 2 cm above the pubic symphysis. The incision was made at the level of the skin and carried down to the fascia, which was sharply nicked. The lateral aspect of the cut fascial edges was extended laterally with curved Moss scissors. The superior and inferior edges of the cut fascial edges were grasped with Candice clamps and the underlying rectus muscles were sharply and bluntly dissected free. The peritoneum was entered in the midline. The peritoneum and abdominal muscles were gently stretched. The bladder blade was placed. A bladder flap was created with the Norwegian forceps and Metzenbaum scissors. A low- transverse incision was then made on the uterus in the lower uterine segment. Clear fluid was seen upon entering. The infant was noted to be vertex and was easily delivered by fundal pressure. Nuchal cord x3, all of which were reduced. The cord was clamped and cut and grossly normal male infant was handed to the awaiting nurse. Cord gas sent for analysis. Cord blood collected. The placenta was delivered manually. The uterus was externalized and endometrium was curetted with a dry lap. The hysterotomy was then closed using 0-chromic suture in a running locking fashion. There was a very small left lateral inferior extension which was incorporated into the hysterotomy with the initial closure. Several [id number] stitches were performed to achieve hemostasis. The bladder flap was then closed using 2-[address] The hysterotomy was examined and noted to be hemostatic. Seprafilm was placed. The uterus was then internalized and again the hysterotomy was visualized and noted to be hemostatic. The peritoneum was closed using 2-[address] in a running nonlocking fashion. The abdominal muscles were then approximated using 2-0 Vicryl with [id number] stitch for pyramidalis muscles. The remainder of the abdominal muscles were brought together using 2-0 chromic suture. The muscles were examined for bleeders and bleeders were cauterized. The fascia was then closed in a running non-locking fashion using 0 Vicryl suture. The subcutaneous tissue was irrigated and suctioned free of clots. Bleeders were cauterized. The subcutaneous tissue was brought together using 2-0 plain gut in a simple interrupted fashion. The skin was then approximated using 4-0 monofilament. Dermabond was applied. Pressure dressing was placed. All counts were correct. COMPLICATIONS: None. DRAINS: Martinez to gravity, draining clear urine. FINDINGS: Grossly normal male infant with Apgars of 8 and 9 at 1 and 5 minutes respectively. Delivery weight of 3.141 kg. The cord gas sent for analysis. QUANTITATIVE BLOOD LOSS: 505 mL. Job ID: [id number] [facility]
== END 2019-07-30 14:07 | disposition home or self-care (01) | DRG 787 ==
LOC: L&D/OP 04:42 → L&D-LIB 13:24 → 3SW 07-28 01:17
PROVIDERS: ADMIT Obstetrics & Gynecology; ATTEND Obstetrics & Gynecology
PROC: 10D00Z1 Extraction of Products of Conception, Low, Open Approach (ICD-10-PCS; principal; 2019-07-27)
DX: O76 Abnormality in fetal heart rate and rhythm complicating labor and delivery (principal); D62 Acute posthemorrhagic anemia; Z37.0 Single live birth; Z3A.37 37 weeks gestation of pregnancy; O62.0 Primary inadequate contractions; O90.81 Anemia of the puerperium; Z90.49 Acquired absence of other specified parts of digestive tract
CPT/HCPCS: 36415; 51702; 82805; 85027; 86780; 86850; 86900; 86901; 87340; 99285; J0595; J1100; J1200; J1885; J2001; J2175; J2270; J2274; J2405; J2590; J3010; J3105; J3490; S0020

== ENCOUNTER 2019-11-16 16:00 | Emergency (ER) | payer OTHER | END 2019-11-16 19:54 | disposition home or self-care (01) | LOC: ERS 16:00 | DX: Z20.828 Contact with and (suspected) exposure to other viral communicable diseases (principal); F41.9 Anxiety disorder, unspecified; F32.9 Major depressive disorder, single episode, unspecified; G47.00 Insomnia, unspecified | CPT/HCPCS: 87635; 99283; U0003 ==

== ENCOUNTER 2021-10-07 15:40 | Emergency (ER) | payer OTHER ==
[2021-10-07 16:25] LABS: #Basophils 0.1 thou/uL (0.0-0.2); #Eosinphils 0.1 thou/uL (0.0-0.7); #Lymphocytes 1.8 thou/uL (1.20-3.40); #Monocytes 0.3 thou/uL (0.11-0.59); #Neutrophils 5.2 thou/uL (1.40-6.50); %Basophils 1.1 % (0.0-1.0); %Eosinophils 1.3 % (0.0-10.0); %Lymphocytes 23.6 % (21.0-51.0); %Monocytes 4.5 % (0.0-10.0); %Neutrophils 69.6 % (42.0-75.0); Hemoglobin 12.1 g/dL (12.0-16.0); Mean Corpuscular HGB CONC 32.2 g/dL (32.0-36.0); Mean Corpuscular Hemoglobin 24.4 pg (27.0-31.0); Mean Corpuscular Volume 75.8 fL (78.0-98.0); Mean Platelet Volume 8.8 fL (7.4-10.4); Platelet Count 274 thou/uL (130-400); RBC Distribution Width 13.4 % (11.5-14.5); Red Blood Cell (RBC) Count 4.95 mill/uL (4.20-5.40); White Blood Cell (WBC) Count 7.5 thou/uL (4.8-10.8)
[2021-10-07 16:47] LABS: ALT (SGPT) 11 U/L (8-55); AST (SGOT) 14 U/L (5-34); Albumin 4.5 g/dL (3.5-5.0); Alkaline Phosphatase 65 U/L (40-110); Anion Gap 12 mmol/L (10-20); BHCG - Serum Negative (NEGATIVE); BUN (Urea Nitrogen) 9 mg/dL (7.0-18.7); Bilirubin, Total 0.5 mg/dL (0.2-1.2); Calc. Creatinine Clearance 0 mL/min (70-130); Calcium 9.3 mg/dL (7.8-10.44); Carbon Dioxide 25 mmol/L (22-29); Chloride 103 mmol/L (98-107); Globulin 3.6 g/dL (2.4-3.5); Glucose 85 mg/dL (70-105); Lipase 64 U/L (8-78); Potassium 3.7 mmol/L (3.5-5.1); Pregs Control Background? CLEAR/WHITE (CLR/WHITE); Pregs Control Bar Appear? YES (CONTROL BAR); Protein, Total 8.1 g/dL (6.0-8.3); Sodium 136 mmol/L (136-145)
[2021-10-07] MEDS ORDERED: Acetaminophen 500 MG TAB ONE (17:30)
[2021-10-07 17:49] LABS: Bacteria/HPF 4+ HPF (None Seen); Bilirubin Negative (Negative); Blood, Urine 3+ (Negative); Clarity Turbid (Clear); Glucose, Urine (Dipstick) Normal (Negative); Ketone, Urine 60 mg/dL (Negative); Leukocyte Negative Leu/uL (Negative); Nitrite Negative (Negative); Protein, Urine (Dipstick) 20 mg/dL (Neg-Trace); RBC/HPF 21-50 HPF (0-3); Specific Gravity, Urine 1.017 (1.002-1.036); Urobilinogen Normal mg/dL (Less than 2); pH, Urine 5.5 (5.0-9.0)
[2021-10-07] MEDS ORDERED: Ketorolac Tromethamine 30 MG/ML VIAL ONE (18:31)
== END 2021-10-07 18:37 | disposition home or self-care (01) ==
LOC: ERS 15:40
DX: N94.6 Dysmenorrhea, unspecified (principal)
CPT/HCPCS: 36415; 76856; 80053; 81003; 81015; 83690; 84702; 84703; 85025; 86850; 86900; 86901; 87086; 94760; 96374; J1885